=== PATIENT | female | born 1965 | race Caucasian/White ===

== ENCOUNTER → 2017-10-18 10:33 | Outpatient (CLI) | payer MEDICARE, MEDICAID, SELFPAY ==
[2017-10-18 11:49] LABS: Amphetamine Urine VISTA NEGATIVE (<1000 ng/mL); Barbiturate Urine VISTA NEGATIVE (< 200 ng/mL); Benzodiazepine Urine VISTA NEGATIVE (< 200 ng/mL); Cocaine Urine VISTA NEGATIVE (< 300 ng/mL); Ecstacy Urine VISTA POSITIVE (< 500 ng/mL); Methadone Urine VISTA NEGATIVE (< 300 ng/mL); PCP Urine VISTA NEGATIVE (< 25 ng/mL); THC Urine VISTA NEGATIVE (< 50 ng/mL); Vista UDS pH Range 7
== END ==
PROVIDERS: Visit Provider Anesthesiology Pain Medicine
DX: F11.20 Opioid dependence, uncomplicated (principal)
CPT/HCPCS: 80307

== ENCOUNTER 2018-07-05 16:18 | Inpatient (IN) | payer MEDICARE, MEDICAID, SELFPAY ==
[2018-07-05] VITALS (7 sets, daily range): BP systolic 101–145; BP diastolic 54–81; PULSE 49–89; RESP 16–18; TEMP 36.4–37.1; O2SAT 91–96; BMI 42.2
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
[2018-07-05] MEDS: ALPRAZolam 0.5 MG Tablet 1 MG PO (20:07)
[2018-07-05] MEDS: Rizatriptan Benzoate 10 MG Tablet PO (20:28)
[2018-07-05] MEDS: Zolpidem Tartrate 5 MG Tablet PO (21:04)
[2018-07-05] MEDS: Oxybutynin 5 MG Tablet PO (21:05)
[2018-07-05] MEDS: Docusate Sodium 100 MG Capsule PO (21:05)
[2018-07-05] MEDS: Pregabalin 50 MG Capsule PO (21:05)
[2018-07-05] MEDS: RisperiDONE 2 MG Tablet PO (21:06)
[2018-07-05] MEDS: buPROPion (SR) 150 MG Tablet.SA PO (21:06)
[2018-07-05] MEDS: tiZANidine HCl 2 MG Tablet 4 MG PO (21:06)
[2018-07-05 21:16] LABS: Bedside Glucose 192 mg/dL (70-110)
[2018-07-05] MEDS: oxyCODONE 5 MG Tablet PO (23:21)
[2018-07-06] VITALS (36 sets, daily range): BP systolic 100–156; BP diastolic 61–92; PULSE 50–105; RESP 6–18; TEMP 35.8–37.3; O2SAT 92–98
[2018-07-06 06:28] LABS: Absolute Lymphocyte Count 2.29 X10^3/ul (0.83-4.51); Absolute Neutrophil Count 2.9 X10^3/uL (2.0-7.7); Anion Gap 6 (5-15); BUN 20 mg/dL (7-18); BUN/Creat Ratio 19.8 RATIO (10-20); Basophil# 0.03 X10^3/uL; Basophil% 0.5 % (0-1); Calcium,Total 8.8 mg/dL (8.5-10.1); Chloride 98 mmol/L (98-107); Creatinine, Serum 1.01 mg/dL (0.55-1.02); EST Glomerular Filtration Rate 61 mL/min (>60); Eosinophil# 0.13 X10^3/uL; Eosinophils% 2.3 % (0-5); Est Glom Filt Rate - Afr Amer 74 mL/min (>60); Estimated Creatinine Clearance 51.53 ml/min; Glucose 202 mg/dL (74-106); Hematocrit 37.1 % (37-47); Hemoglobin 11.4 g/dl (12.0-15.0); Lymphocyte # 2.29 X10^3/ul (4.0); Lymphocyte % 39.7 % (19-41); Mean Corp Hgb Conc 30.7 g/gl (32-36); Mean Corpuscular Volume 104.2 fL (81-99); Mean Platelet Vol. 9.3 fl (6.2-12.0); Monocyte% 6.9 % (0-10); Neutrophil % 50.3 % (47-70); Platelet Count 298 K/mm3 (150-450); Potassium 4.6 mmol/L (3.5-5.1); RBC Distribution Width CV 13.1 % (11.6-14.6); RBC Distribution Width SD 48.9 fl (35.1-43.9); Red Blood Count 3.56 M/mm3 (4.2-5.4); Sodium Level 136 mmol/L (136-145); White Blood Count 5.8 K/mm3 (4.4-11.0)
[2018-07-06 06:37] LABS: POSITIVE COUNT NO; POSITIVE DIFFERENTIAL NO; POSITIVE MORPHOLOGY NO
[2018-07-06] MEDS: tiZANidine HCl 2 MG Tablet 4 MG PO ×2 (06:41→13:36)
[2018-07-06] MEDS: Levothyroxine 100 MCG Tablet PO (06:41)
[2018-07-06] MEDS: ALPRAZolam 0.5 MG Tablet 1 MG PO (06:47)
[2018-07-06] MEDS: Insulin Lispro 100 UNIT/ML INSULN.PEN SQ ×2 (06:48→17:53)
[2018-07-06 06:50] LABS: Bedside Glucose 174 mg/dL (70-110)
[2018-07-06] MEDS: Oxybutynin 5 MG Tablet PO (07:47)
[2018-07-06] MEDS: Montelukast 10 MG Tablet PO (07:47)
[2018-07-06] MEDS: Loratadine 10 MG Tablet PO (07:47)
[2018-07-06] MEDS: buPROPion (SR) 150 MG Tablet.SA PO (07:47)
[2018-07-06] MEDS: glipiZIDE 5 MG Tablet PO (07:47)
[2018-07-06] MEDS: Pantoprazole Sodium 40 MG Tablet PO (07:47)
[2018-07-06] MEDS: Pregabalin 50 MG Capsule PO (07:50)
--- NOTE | 2018-07-06 09:20 | PCM.PN.HOSP ---
Patient Problems: Active and Suspected Problems (Last Updated 07/05/18 @ 16:45 by Kj Aleman DO) Back pain (Acute) Subjective: No events. Has the intrathecal pump with hydromorphone. Only required percocet last night. Vitals/I&O's: Vital Signs Temp Pulse Resp BP Pulse Ox 36.8 C 68 18 119/68 93 07/06/18 07:30 07/06/18 07:30 07/06/18 07:30 07/06/18 07:30 07/06/18 07:30 Oxygen Flow Rate (L/min) 2 Oxygen Delivery Method Nasal Cannula Weight: 104.689 kg Body Mass Index (BMI) 42.2 Intake and Output for Last 24 Hours 07/04/18 07/05/18 07/06/18 23:59 23:59 23:59 Intake Total 627 / 627 625 / 625 Balance 627 / 627 625 / 625 General: Alert, No apparent distress HEENT: Atraumatic, Normocephalic Oral: Moist Mucosa, No Gingival or Mucosal Lesions/ Ulcerations Neck: No Nodes, Thyroid Normal Size and Texture Lungs: Clear to auscultation, Normal air movement, No rhonchi, No wheeze Cardiovascular: Regular rate, Regular Rhythm, Normal S1, Normal S2, No murmurs Abdomen: Bowel Sounds Present, Soft, Non Tender, Non-Distended, No Hepato-splenomegaly Extremities: No edema, No Calf Tenderness Psych/Mental Status: Normal Affect, Appropriate Laboratory Results 07/05/18 21:02: POC Glucose 192 H 07/06/18 05:30: WBC 5.8, RBC 3.56 L, Hgb 11.4 L, Hct 37.1, MCV 104.2 H, MCH 32.0, MCHC 30.7 L, RDW 13.1, RDW Differential 48.9 H, Plt Count 298, MPV 9.3, Immature Gran % (Auto) 0.300, Neut % (Auto) 50.3, Lymph % (Auto) 39.7, [place] % (Auto) 6.9, Eos % (Auto) 2.3, Baso % (Auto) 0.5, Absolute Neuts (auto) 2.9, Absolute Lymphs (auto) 2.29, Total Counted Not Reportable 07/06/18 05:30: Sodium 136, Potassium 4.6, Chloride 98, Carbon Dioxide 32.0, Anion Gap 6, BUN 20 H, Creatinine 1.01, Estim Creat Clear Calc 51.53, Est GFR (MDRD) Af Amer 74, Est GFR (MDRD) Non-Af 61, BUN/Creatinine Ratio 19.8, Glucose 202 H, Calcium 8.8 07/06/18 06:36: POC Glucose 174 H Current Medications Acetaminophen (Tylenol) 650 mg PO Q6H PRN PRN PRN Reason: Mild Pain (1-3)/Temp > 100.7 F Albuterol Sulfate (Ventolin Aerosols) 2.5 mg INHALATION Q4H PRN PRN Reason: Asthma Albuterol Sulfate (Ventolin Aerosols) 2.5 mg INHALATION Q6HWA.RT [facility] Alprazolam (Xanax) 1 mg PO TID PRN PRN PRN Reason: ANXIETY Last Admin: 07/06/18 06:47 Dose: 1 mg Budesonide (Pulmicort Aerosol) 0.5 mg INHALATION Q12H.RT [facility] Bupropion HCl (Wellbutrin Sr (150mg Tablets)) 150 mg PO BID [facility] Last Admin: 07/06/18 07:47 Dose: 150 mg Dextrose (D50w Syringe) 0 gm IV X1 PRN; Protocol PRN Reason: Hypoglycemia Diphenhydramine HCl (Benadryl) 12.5 - 25 mg IV Q6H PRN PRN PRN Reason: ITCHING Diphenhydramine HCl (Benadryl) 12.5 - 25 mg PO Q6H PRN PRN PRN Reason: ITCHING Docusate Sodium (Colace) 100 mg PO BID PRN PRN PRN Reason: Constipation Last Admin: 07/05/18 21:05 Dose: 100 mg Glipizide (Glucotrol) 5 mg PO DAILY@0800 [facility] Last Admin: 07/06/18 07:47 Dose: 5 mg Glucagon () 1 mg IM .X1 PRN PRN Reason: Hypoglycemia Hydromorphone HCl 50 mg/ (Sodium Chloride 45 ml/ N/A) 50 mls @ 0.1 mls/hr IV .Q48H [facility] Last Admin: 07/05/18 17:59 Dose: 0.1 mls/hr Naloxone HCl 4 mg/ Dextrose 504 mls @ 0 mls/hr IV .Q0M PRN; Protocol PRN Reason: To maintain Resp. rate >10 Insulin Human Lispro (Humalog Kwikpen (Bkc)) 0 unit SQ TIDAC [facility]; Protocol Last Admin: 07/06/18 06:48 Dose: 174 unit Levothyroxine Sodium (Synthroid) 100 mcg PO DAILY@0600 [facility] Last Admin: 07/06/18 06:41 Dose: 100 mcg Loratadine (Claritin) 10 mg PO DAILY [facility] Last Admin: 07/06/18 07:47 Dose: 10 mg Magnesium Hydroxide (Milk Of Magnesia) 30 ml PO DAILY PRN PRN PRN Reason: Constipation Montelukast Sodium (Singulair) 10 mg PO DAILY [facility] Last Admin: 07/06/18 07:47 Dose: 10 mg Naloxone HCl (Narcan) 0.02 mg IV Q1M PRN Ondansetron HCl (Zofran) 4 mg IV Q8H PRN PRN PRN Reason: NAUSEA Oxybutynin Chloride (Ditropan) 5 mg PO BID [facility] Last Admin: 07/06/18 07:47 Dose: 5 mg Oxycodone HCl (Oxyir) 5 - 10 mg PO Q6H PRN PRN PRN Reason: SEVERE PAIN (6-10/10) Last Admin: 07/05/18 23:21 Dose: 10 mg Pantoprazole Sodium (Protonix) 40 mg PO DAILY [facility] Last Admin: 07/06/18 07:47 Dose: 40 mg Pregabalin (Lyrica) 50 mg PO BID [facility] Last Admin: 07/06/18 07:50 Dose: 50 mg Promethazine HCl (Phenergan Tablet) 25 mg PO Q4H PRN PRN PRN Reason: NAUSEA Risperidone (Risperdal) 2 mg PO QHS [facility] Last Admin: 07/05/18 21:06 Dose: 2 mg Rizatriptan Benzoate (Maxalt) 10 mg PO DAILY PRN PRN Reason: HEADACHE Last Admin: 07/05/18 20:28 Dose: 10 mg Tizanidine HCl (Zanaflex) 4 mg PO TID [facility] Last Admin: 07/06/18 06:41 Dose: 4 mg Zolpidem Tartrate (Ambien (Generic)) 5 mg PO QHS [facility] Last Admin: 07/05/18 21:04 Dose: 5 mg Medical Necessity - Tobacco Use Smoking Status: Current every day smoker Tobacco Use: Vapor Assessment/Plan All Active Problems (Last Updated 07/05/18 @ 16:45 by Kj Aleman DO) Back pain (Acute) 1. Back pain Status post temporary intrathecal pump Dr. Ramirez did the procedure and the plan is for him to optimize her pain medication to get her to a threshold to the point where she is controlled and then determine further modes of treatment thereafter. Goal is to get her formal intrathecal pump. Pain management to be facilitated by Dr. Ramirez 2. Diabetes mellitus type 2 Patient states that she is well controlled at home Continue with home medications Moderate dose sliding scale insulin 3. Right sumner rash Looks plaque like but it began after she was wearing a knee brace, so I suspect this is more of a contact dermatitis or an abrasion. I suspect that this will continue to improve Reassurance provided Patient does have a family history of psoriasis but patient is never had a rash like this to began after the knee brace. Therefore I doubt psoriasis. 4. DVT prophylaxis with SCDs. Would hold off on chemical prophylaxis given the recent spinal procedure 5. Disposition: To home when deemed appropriate by pain management. 6. Polypharmacy Reviewed OARRS: She received Percocet, Lyrica and Oxycodone from Dr. Ramirez, Clonazepam and Ambien from Patricia Son. Home med rec had Xanax AND Clonazepam. No record of Xanax prescribed recently on OARRS. Last night, before I reviewed OARRS, I continued Xanax and DC'd clonazepam. I will now resume Clonazepam and DC Xanax, and make it PRN. Recommend follow up with Patricia Son to discuss other option in lieu of long-term benzodiazepines. Code Visit Inpatient E&M: 47006 Subs Hosp L2
--- NOTE | 2018-07-06 09:24 | NURSING ---
Intrathecal dose increased to 0.2mg/hr. Verified with Marguerite Arguelles RN, Dr. Ramirez present in room as well and verified dose settings on pump.
--- NOTE | 2018-07-06 09:28 | PN_ITS ---
Patient Problems: Active and Suspected Problems (Last Updated 07/05/18 @ 16:45 by jK Aleman DO) Back pain (Acute) Subjective: No events. Has the intrathecal pump with hydromorphone. Only required percocet last night. Vitals/I&O's: Vital Signs Temp Pulse Resp BP Pulse Ox 36.8 C 68 18 119/68 93 07/06/18 07:30 07/06/18 07:30 07/06/18 07:30 07/06/18 07:30 07/06/18 07:30 Oxygen Flow Rate (L/min) 2 Oxygen Delivery Method Nasal Cannula Weight: 104.689 kg Body Mass Index (BMI) 42.2 Intake and Output for Last 24 Hours 07/04/18 07/05/18 07/06/18 23:59 23:59 23:59 Intake Total 627 / 627 625 / 625 Balance 627 / 627 625 / 625 General: Alert, No apparent distress HEENT: Atraumatic, Normocephalic Oral: Moist Mucosa, No Gingival or Mucosal Lesions/ Ulcerations Neck: No Nodes, Thyroid Normal Size and Texture Lungs: Clear to auscultation, Normal air movement, No rhonchi, No wheeze Cardiovascular: Regular rate, Regular Rhythm, Normal S1, Normal S2, No murmurs Abdomen: Bowel Sounds Present, Soft, Non Tender, Non-Distended, No Hepato- splenomegaly Extremities: No edema, No Calf Tenderness Psych/Mental Status: Normal Affect, Appropriate Laboratory Results 07/05/18 21:02: POC Glucose 192 H 07/06/18 05:30: WBC 5.8, RBC 3.56 L, Hgb 11.4 L, Hct 37.1, MCV 104.2 H, MCH 32.0, MCHC 30.7 L, RDW 13.1, RDW Differential 48.9 H, Plt Count 298, MPV 9.3, Immature Gran % (Auto) 0.300, Neut % (Auto) 50.3, Lymph % (Auto) 39.7, [place] % (Auto) 6.9, Eos % (Auto) 2.3, Baso % (Auto) 0.5, Absolute Neuts (auto) 2.9, Absolute Lymphs (auto) 2.29, Total Counted Not Reportable 07/06/18 05:30: Sodium 136, Potassium 4.6, Chloride 98, Carbon Dioxide 32.0, Anion Gap 6, BUN 20 H, Creatinine 1.01, Estim Creat Clear Calc 51.53, Est GFR (MDRD) Af Amer 74, Est GFR (MDRD) Non-Af 61, BUN/Creatinine Ratio 19.8, Glucose 202 H, Calcium 8.8 07/06/18 06:36: POC Glucose 174 H Current Medications Acetaminophen (Tylenol) 650 mg PO Q6H PRN PRN PRN Reason: Mild Pain (1-3)/Temp > 100.7 F Albuterol Sulfate (Ventolin Aerosols) 2.5 mg INHALATION Q4H PRN PRN Reason: Asthma Albuterol Sulfate (Ventolin Aerosols) 2.5 mg INHALATION Q6HWA.RT [facility] Alprazolam (Xanax) 1 mg PO TID PRN PRN PRN Reason: ANXIETY Last Admin: 07/06/18 06:47 Dose: 1 mg Budesonide (Pulmicort Aerosol) 0.5 mg INHALATION Q12H.RT [facility] Bupropion HCl (Wellbutrin Sr (150mg Tablets)) 150 mg PO BID [facility] Last Admin: 07/06/18 07:47 Dose: 150 mg Dextrose (D50w Syringe) 0 gm IV X1 PRN; Protocol PRN Reason: Hypoglycemia Diphenhydramine HCl (Benadryl) 12.5 - 25 mg IV Q6H PRN PRN PRN Reason: ITCHING Diphenhydramine HCl (Benadryl) 12.5 - 25 mg PO Q6H PRN PRN PRN Reason: ITCHING Docusate Sodium (Colace) 100 mg PO BID PRN PRN PRN Reason: Constipation Last Admin: 07/05/18 21:05 Dose: 100 mg Glipizide (Glucotrol) 5 mg PO DAILY@0800 [facility] Last Admin: 07/06/18 07:47 Dose: 5 mg Glucagon () 1 mg IM .X1 PRN PRN Reason: Hypoglycemia Hydromorphone HCl 50 mg/ (Sodium Chloride 45 ml/ N/A) 50 mls @ 0.1 mls/hr IV .Q48H [facility] Last Admin: 07/05/18 17:59 Dose: 0.1 mls/hr Naloxone HCl 4 mg/ Dextrose 504 mls @ 0 mls/hr IV .Q0M PRN; Protocol PRN Reason: To maintain Resp. rate >10 Insulin Human Lispro (Humalog Kwikpen (Bkc)) 0 unit SQ TIDAC [facility]; Protocol Last Admin: 07/06/18 06:48 Dose: 174 unit Levothyroxine Sodium (Synthroid) 100 mcg PO DAILY@0600 [facility] Last Admin: 07/06/18 06:41 Dose: 100 mcg Loratadine (Claritin) 10 mg PO DAILY [facility] Last Admin: 07/06/18 07:47 Dose: 10 mg Magnesium Hydroxide (Milk Of Magnesia) 30 ml PO DAILY PRN PRN PRN Reason: Constipation Montelukast Sodium (Singulair) 10 mg PO DAILY [facility] Last Admin: 07/06/18 07:47 Dose: 10 mg Naloxone HCl (Narcan) 0.02 mg IV Q1M PRN Ondansetron HCl (Zofran) 4 mg IV Q8H PRN PRN PRN Reason: NAUSEA Oxybutynin Chloride (Ditropan) 5 mg PO BID [facility] Last Admin: 07/06/18 07:47 Dose: 5 mg Oxycodone HCl (Oxyir) 5 - 10 mg PO Q6H PRN PRN PRN Reason: SEVERE PAIN (6-10/10) Last Admin: 07/05/18 23:21 Dose: 10 mg Pantoprazole Sodium (Protonix) 40 mg PO DAILY [facility] Last Admin: 07/06/18 07:47 Dose: 40 mg Pregabalin (Lyrica) 50 mg PO BID [facility] Last Admin: 07/06/18 07:50 Dose: 50 mg Promethazine HCl (Phenergan Tablet) 25 mg PO Q4H PRN PRN PRN Reason: NAUSEA Risperidone (Risperdal) 2 mg PO QHS [facility] Last Admin: 07/05/18 21:06 Dose: 2 mg Rizatriptan Benzoate (Maxalt) 10 mg PO DAILY PRN PRN Reason: HEADACHE Last Admin: 07/05/18 20:28 Dose: 10 mg Tizanidine HCl (Zanaflex) 4 mg PO TID [facility] Last Admin: 07/06/18 06:41 Dose: 4 mg Zolpidem Tartrate (Ambien (Generic)) 5 mg PO QHS [facility] Last Admin: 07/05/18 21:04 Dose: 5 mg Medical Necessity - Tobacco Use Smoking Status: Current every day smoker Tobacco Use: Vapor Assessment/Plan All Active Problems (Last Updated 07/05/18 @ 16:45 by Kj Aleman DO) Back pain (Acute) 1. Back pain Status post temporary intrathecal pump Dr. Ramirez did the procedure and the plan is for him to optimize her pain medication to get her to a threshold to the point where she is controlled and then determine further modes of treatment thereafter. Goal is to get her formal intrathecal pump. Pain management to be facilitated by Dr. Ramirez 2. Diabetes mellitus type 2 Patient states that she is well controlled at home Continue with home medications Moderate dose sliding scale insulin 3. Right sumner rash Looks plaque like but it began after she was wearing a knee brace, so I suspect this is more of a contact dermatitis or an abrasion. I suspect that this will continue to improve Reassurance provided Patient does have a family history of psoriasis but patient is never had a rash like this to began after the knee brace. Therefore I doubt psoriasis. 4. DVT prophylaxis with SCDs. Would hold off on chemical prophylaxis given the recent spinal procedure 5. Disposition: To home when deemed appropriate by pain management. 6. Polypharmacy Reviewed OARRS: She received Percocet, Lyrica and Oxycodone from Dr. Ramirez, Clonazepam and Ambien from Patricia Son. Home med rec had Xanax AND Clonazepam. No record of Xanax prescribed recently on OARRS. Last night, before I reviewed OARRS, I continued Xanax and DC'd clonazepam. I will now resume Clonazepam and DC Xanax, and make it PRN. Recommend follow up with Patricia Son to discuss other option in lieu of long-term benzodiazepines. Code Visit Inpatient E&M: 30154 Subs Hosp L2
--- NOTE | 2018-07-06 11:00 | CASEMGMT ---
RN JOHNNIE Face to Face with patient for initial transition planning/care coordination assessment. RN CM introduced self and role at [facility]. Patient lying in bed, alert and oriented. Patient willing to participate in assessment and is able to answer all questions appropriately. Care providers, pharmacy, and demographics verified. Patient wishes to discharge home, denies need for home health at this time. Patient states she has no further needs or concerns at this time. CM to follow for discharge planning needs that may arise. PCP: Etta velasco [place] Specialists: Ashley Onofre Pharmacy: [facility] Insurance: [facility], [employer] Prescription Benefit: Yes Living Will/HPOA: None LNOK: Father Living Arrangements: Lives with 11 yo grandson in an apt, independent at home. Transportation: Self/friend DME/HHC: Patient has cane and walker. Disposition Plan: Patient to discharge home with family support and follow-up plans in place. Alessia LUQUE, RN, CM
[2018-07-06 11:36] LABS: Bedside Glucose 114 mg/dL (70-110)
[2018-07-06] MEDS: Rizatriptan Benzoate 10 MG Tablet PO (12:02)
[2018-07-06] MEDS: proMETHazine 25 MG Tablet PO (12:06)
[2018-07-06] MEDS: clonazePAM 1 MG Tablet PO (12:06)
[2018-07-06] MEDS: Albuterol 2.5 MG/3 ML VIAL.NEB. INHALATION ×2 (14:08→19:27)
[2018-07-06] MEDS: Budesonide Respules 0.5 MG/2 ML AMPUL.NEB. INHALATION (14:08)
--- NOTE | 2018-07-06 14:32 | CPS ---
Patient sleeping. Respirations at 6. Pulse oximeter ranging from 84-95%. Increased to 4lpm. Expressed concern to RN. Patient awoke momentarily, she said she has JAGUAR but does not have a CPAP.
[2018-07-06 16:06] LABS: Bedside Glucose 214 mg/dL (70-110)
--- NOTE | 2018-07-06 16:06 | NURSING ---
Pt lethargic/drowsy/falling asleep mid conversation. Respiratory rate 6-8 per minute and oxygen saturation 95% on 4L NC. Dr. Ramirez paged. Intrathecal infusion stopped at 1435. After 1.5 hours pt status still the same. Pt will wake up to name easily. Dr. Ramirez paged again for opinion on giving Narcan. He recommends monitoring pt closely and not giving Narcan unless pt status gets worse. He will be in to assess Pt around 1730. Pt and boyfriend updated.
--- NOTE | 2018-07-06 17:56 | NURSING ---
Dr. Ramirez in to see pt around 1745. Boyfriend at bedside. Pt able to hold conversation with Dr. Ramirez but speech still slurred and pupils pinpoint. Dr. Ramirez pulled out intrathecal catheter with tip intact and will have us monitor pt overnight and discharge her in the am. No pain medication to be given.
--- NOTE | 2018-07-06 20:08 | NURSING ---
Called Dr Hanson after assessing pt and in discussion with charge nurse and respiratory staff. See charted assess and POSS. Dr Hanson ordered blood gases and 0.4mg of narcan to bet given.
[2018-07-06] MEDS: Naloxone 0.4 MG/ML Syringe IV ×2 (20:14→21:31)
[2018-07-06] MEDS: Acetaminophen 325 MG Tablet 650 MG PO (20:49)
[2018-07-06] MEDS: Ondansetron 4 MG/2 ML Vial IV (20:49)
--- NOTE | 2018-07-06 21:00 | NURSING ---
narcan effective. VS taken post administration. pt vomitted and incont stool post administration. c/o headache post administration. zofran and tylenol given. pupils returned to normal initially. pt ambulated back to bathroom. on return to bed pupils reduced from 4+ to 2+ and pt beginning to get drowsy again. will monitor closely.
[2018-07-06 21:30] LABS: Bedside Glucose 149 mg/dL (70-110)
--- NOTE | 2018-07-06 21:33 | CCHN_ITS ---
Hospitalist Note Patient is having hypopnea with shallow respiratory effort, respiratory rate 6- 8/min. About 8:00 p.m., nurse called to evaluate for decreased respiratory effort and and sleepiness. Patient was seen and examined. Decreased responsiveness, shallow respiratory effort. Narcan 0.4 mg given. Patient woke up but after about 1 hour, she is still sleepy with decreased respiratory effort. Patient is being transferred to ICU for Narcan IV stat and then start infusion. Incentive spirometry. ABG was ordered.
--- NOTE | 2018-07-06 21:50 | NURSING ---
further assessment of pt attended. RR8 and POSS 3. After discussion with Hospitalist, further dose of narcan given and arrangements made to transfer pt to ICU for further monitoring. Pt vomitted again post administration of narcan. Handoff given to ORDER TRACER Gretchen. Will notify Dr Ramirez and family.
--- NOTE | 2018-07-06 22:49 | CPS ---
ABG unsuccessful attempt x2 prior to first dose of narcan. Post narcan attempt X2 by Dr. Hanson. Pt refused additional attempts. Pt placed on etCO2 monitor due to continued abnormal RR.
[2018-07-06] MEDS: 0.9% NaCl Peripheral Flush Adult/Peds IV (23:43)
[2018-07-07] VITALS (27 sets, daily range): BP systolic 113–157; BP diastolic 59–94; PULSE 75–103; RESP 11–22; TEMP 36.2–36.5; O2SAT 90–100
[2018-07-07] MEDS: 0.9% Normal Saline 1,000 ML 75 ML IV (00:07)
[2018-07-07] MEDS: proMETHazine 25 MG Tablet PO (00:15)
[2018-07-07] MEDS: Acetaminophen 325 MG Tablet 650 MG PO ×2 (03:05→09:11)
[2018-07-07] MEDS: Levothyroxine 100 MCG Tablet PO (05:02)
[2018-07-07] MEDS: Budesonide Respules 0.5 MG/2 ML AMPUL.NEB. INHALATION (07:21)
[2018-07-07] MEDS: Albuterol 2.5 MG/3 ML VIAL.NEB. INHALATION (07:21)
--- NOTE | 2018-07-07 08:04 | PCM.PN.HOSP ---
Patient Problems: Active and Suspected Problems (Last Updated 07/05/18 @ 16:45 by Kj Aleman DO) Back pain (Acute) Narcotic overdose (Acute) Subjective: Events reviewed. Patient had sonorous respirations and had a respiratory rate of around 6. Concern was for overdose and patient received Narcan barely woke and then was put on Narcan drip. Since then patient has been awake and alert. Patient denies any respiratory distress at this time. The intrathecal hydromorphone has been discontinued. Vitals/I&O's: Vital Signs Temp Pulse Resp BP Pulse Ox 36.4 C L 93 13 126/70 H 94 07/07/18 06:00 07/07/18 06:00 07/07/18 06:00 07/07/18 06:00 07/07/18 06:00 Oxygen Flow Rate (L/min) 2 Oxygen Delivery Method Nasal Cannula Weight: 106.1 kg Body Mass Index (BMI) 42.2 Intake and Output for Last 24 Hours 07/05/18 07/06/18 07/07/18 23:59 23:59 23:59 Intake Total 627 / 627 1385 / 1385 588 / 588 Output Total 1400 / 1400 375 / 375 Balance 627 / 627 -15 / -15 213 / 213 General: Alert, No apparent distress HEENT: Atraumatic, Normocephalic Oral: Moist Mucosa, No Gingival or Mucosal Lesions/ Ulcerations Neck: No Nodes, Thyroid Normal Size and Texture Lungs: Clear to auscultation, Normal air movement, No rhonchi, No wheeze Cardiovascular: Regular rate, Regular Rhythm, Normal S1, Normal S2, No murmurs Abdomen: Bowel Sounds Present, Soft, Non Tender, Non-Distended, No Hepato-splenomegaly Extremities: No edema, No Calf Tenderness Skin: No rashes, No breakdown Musculoskeletal: No Tenderness to Palpation of Joints or Extremities, No Muscle Wasting Psych/Mental Status: Normal Affect, Appropriate Laboratory Results 07/06/18 10:51: POC Glucose 114 H 07/06/18 15:57: POC Glucose 214 H 07/06/18 21:21: POC Glucose 149 H Current Medications Acetaminophen (Tylenol) 650 mg PO Q6H PRN PRN PRN Reason: Mild Pain (1-3)/Temp > 100.7 F Last Admin: 07/07/18 03:05 Dose: 650 mg Albuterol Sulfate (Ventolin Aerosols) 2.5 mg INHALATION Q4H PRN PRN Reason: Asthma Albuterol Sulfate (Ventolin Aerosols) 2.5 mg INHALATION Q6HWA.RT [facility] Last Admin: 07/07/18 07:21 Dose: 2.5 mg Budesonide (Pulmicort Aerosol) 0.5 mg INHALATION Q12H.RT [facility] Last Admin: 07/07/18 07:21 Dose: 0.5 mg Bupropion HCl (Wellbutrin Sr (150mg Tablets)) 150 mg PO BID [facility] Last Admin: 07/06/18 21:30 Dose: Not Given Clonazepam (Klonopin) 1 mg PO TID PRN PRN Reason: ANXIETY Last Admin: 07/06/18 12:06 Dose: 1 mg Dextrose (D50w Syringe) 0 gm IV X1 PRN; Protocol PRN Reason: Hypoglycemia Diphenhydramine HCl (Benadryl) 12.5 - 25 mg IV Q6H PRN PRN PRN Reason: ITCHING Diphenhydramine HCl (Benadryl) 12.5 - 25 mg PO Q6H PRN PRN PRN Reason: ITCHING Docusate Sodium (Colace) 100 mg PO BID PRN PRN PRN Reason: Constipation Last Admin: 07/05/18 21:05 Dose: 100 mg Glipizide (Glucotrol) 5 mg PO DAILY@0800 [facility] Last Admin: 07/06/18 07:47 Dose: 5 mg Glucagon () 1 mg IM .X1 PRN PRN Reason: Hypoglycemia Sodium Chloride () 1,000 mls @ 75 mls/hr IV .[id number] [facility] Last Admin: 07/07/18 00:07 Dose: 75 mls/hr Naloxone HCl 4 mg/ Dextrose 504 mls @ 0 mls/hr IV .Q0M PRN; Protocol PRN Reason: To maintain Resp. rate >10 Insulin Human Lispro (Humalog Kwikpen (Bkc)) 0 unit SQ TIDAC [facility]; Protocol Last Admin: 07/06/18 17:53 Dose: 2 unit Levothyroxine Sodium (Synthroid) 100 mcg PO DAILY@0600 [facility] Last Admin: 07/07/18 05:02 Dose: 100 mcg Loratadine (Claritin) 10 mg PO DAILY [facility] Last Admin: 07/06/18 07:47 Dose: 10 mg Magnesium Hydroxide (Milk Of Magnesia) 30 ml PO DAILY PRN PRN PRN Reason: Constipation Montelukast Sodium (Singulair) 10 mg PO DAILY [facility] Last Admin: 07/06/18 07:47 Dose: 10 mg Naloxone HCl (Narcan) 0.02 mg IV Q1M PRN Ondansetron HCl (Zofran) 4 mg IV Q8H PRN PRN PRN Reason: NAUSEA Last Admin: 07/06/18 20:49 Dose: 4 mg Oxybutynin Chloride (Ditropan) 5 mg PO BID [facility] Last Admin: 07/06/18 21:30 Dose: Not Given Oxycodone HCl (Oxyir) 5 - 10 mg PO Q6H PRN PRN PRN Reason: SEVERE PAIN (6-10/10) Last Admin: 07/05/18 23:21 Dose: 10 mg Pantoprazole Sodium (Protonix) 40 mg PO DAILY [facility] Last Admin: 07/06/18 07:47 Dose: 40 mg Pregabalin (Lyrica) 50 mg PO BID [facility] Last Admin: 07/06/18 21:30 Dose: Not Given Promethazine HCl (Phenergan Tablet) 25 mg PO Q4H PRN PRN PRN Reason: NAUSEA Last Admin: 07/07/18 00:15 Dose: 25 mg Risperidone (Risperdal) 2 mg PO QHS [facility] Last Admin: 07/06/18 21:30 Dose: Not Given Rizatriptan Benzoate (Maxalt) 10 mg PO DAILY PRN PRN Reason: HEADACHE Last Admin: 07/06/18 12:02 Dose: 10 mg Sodium Chloride () 5 - 15 ml IV UD PRN PRN Reason: SALINE FLUSH Last Admin: 07/06/18 23:43 Dose: 10 ml Tizanidine HCl (Zanaflex) 4 mg PO TID [facility] Last Admin: 07/07/18 05:03 Dose: Not Given Zolpidem Tartrate (Ambien (Generic)) 5 mg PO QHS [facility] Last Admin: 07/06/18 21:25 Dose: Not Given Medical Necessity - Tobacco Use Smoking Status: Current every day smoker Tobacco Use: Vapor Assessment/Plan All Active Problems (Last Updated 07/05/18 @ 16:45 by Kj Aleman DO) Back pain (Acute) Narcotic overdose (Acute) 1. Narcotic Overdose 2/2 intrathecal hydromorphone s/p Narcan IV x1 on 07/06 at 2004. Narcan gtt started at 1740 and discontinued this AM. Will monitor this AM to see if Narcan gtt needs restarted or not. 2. Back pain Status post temporary intrathecal pump. Removed (possibly last night). Intrathecal pump discontinued given the overdose. 3. Diabetes mellitus type 2 Patient states that she is well controlled at home Continue with home medications Moderate dose sliding scale insulin 4. Right sumner rash Looks plaque like but it began after she was wearing a knee brace, so I suspect this is more of a contact dermatitis or an abrasion. I suspect that this will continue to improve Reassurance provided Patient does have a family history of psoriasis but patient is never had a rash like this to began after the knee brace. Therefore I doubt psoriasis. 5. DVT prophylaxis with SCDs. Would hold off on chemical prophylaxis given the recent spinal procedure 6. Disposition: To home when deemed appropriate by pain management. 7. Polypharmacy Reviewed [facility]AR[facility]: She received Percocet, Lyrica and Oxycodone from Dr. Ramirez, Clonazepam and Ambien from Patricia Son. Home med rec had Xanax AND Clonazepam. No record of Xanax prescribed recently on [facility]. Last night, before I reviewed [facility], I continued Xanax and DC'd clonazepam. I will now resume Clonazepam and DC Xanax, and make it PRN. Recommend follow up with Patricia Son to discuss other option in lieu of long-term benzodiazepines. Page out to Dr. Ramirez. Code Visit Inpatient E&M: 69554 Subs Hosp L3
--- NOTE | 2018-07-07 08:17 | PN_ITS ---
Patient Problems: Active and Suspected Problems (Last Updated 07/05/18 @ 16:45 by Kj Aleman DO) Back pain (Acute) Narcotic overdose (Acute) Subjective: Events reviewed. Patient had sonorous respirations and had a respiratory rate of around 6. Concern was for overdose and patient received Narcan barely woke and then was put on Narcan drip. Since then patient has been awake and alert. Patient denies any respiratory distress at this time. The intrathecal hydromorphone has been discontinued. Vitals/I&O's: Vital Signs Temp Pulse Resp BP Pulse Ox 36.4 C L 93 13 126/70 H 94 07/07/18 06:00 07/07/18 06:00 07/07/18 06:00 07/07/18 06:00 07/07/18 06:00 Oxygen Flow Rate (L/min) 2 Oxygen Delivery Method Nasal Cannula Weight: 106.1 kg Body Mass Index (BMI) 42.2 Intake and Output for Last 24 Hours 07/05/18 07/06/18 07/07/18 23:59 23:59 23:59 Intake Total 627 / 627 1385 / 1385 588 / 588 Output Total 1400 / 1400 375 / 375 Balance 627 / 627 -15 / -15 213 / 213 General: Alert, No apparent distress HEENT: Atraumatic, Normocephalic Oral: Moist Mucosa, No Gingival or Mucosal Lesions/ Ulcerations Neck: No Nodes, Thyroid Normal Size and Texture Lungs: Clear to auscultation, Normal air movement, No rhonchi, No wheeze Cardiovascular: Regular rate, Regular Rhythm, Normal S1, Normal S2, No murmurs Abdomen: Bowel Sounds Present, Soft, Non Tender, Non-Distended, No Hepato- splenomegaly Extremities: No edema, No Calf Tenderness Skin: No rashes, No breakdown Musculoskeletal: No Tenderness to Palpation of Joints or Extremities, No Muscle Wasting Psych/Mental Status: Normal Affect, Appropriate Laboratory Results 07/06/18 10:51: POC Glucose 114 H 07/06/18 15:57: POC Glucose 214 H 07/06/18 21:21: POC Glucose 149 H Current Medications Acetaminophen (Tylenol) 650 mg PO Q6H PRN PRN PRN Reason: Mild Pain (1-3)/Temp > 100.7 F Last Admin: 07/07/18 03:05 Dose: 650 mg Albuterol Sulfate (Ventolin Aerosols) 2.5 mg INHALATION Q4H PRN PRN Reason: Asthma Albuterol Sulfate (Ventolin Aerosols) 2.5 mg INHALATION Q6HWA.RT [facility] Last Admin: 07/07/18 07:21 Dose: 2.5 mg Budesonide (Pulmicort Aerosol) 0.5 mg INHALATION Q12H.RT [facility] Last Admin: 07/07/18 07:21 Dose: 0.5 mg Bupropion HCl (Wellbutrin Sr (150mg Tablets)) 150 mg PO BID [facility] Last Admin: 07/06/18 21:30 Dose: Not Given Clonazepam (Klonopin) 1 mg PO TID PRN PRN Reason: ANXIETY Last Admin: 07/06/18 12:06 Dose: 1 mg Dextrose (D50w Syringe) 0 gm IV X1 PRN; Protocol PRN Reason: Hypoglycemia Diphenhydramine HCl (Benadryl) 12.5 - 25 mg IV Q6H PRN PRN PRN Reason: ITCHING Diphenhydramine HCl (Benadryl) 12.5 - 25 mg PO Q6H PRN PRN PRN Reason: ITCHING Docusate Sodium (Colace) 100 mg PO BID PRN PRN PRN Reason: Constipation Last Admin: 07/05/18 21:05 Dose: 100 mg Glipizide (Glucotrol) 5 mg PO DAILY@0800 [facility] Last Admin: 07/06/18 07:47 Dose: 5 mg Glucagon () 1 mg IM .X1 PRN PRN Reason: Hypoglycemia Sodium Chloride () 1,000 mls @ 75 mls/hr IV .[id number] [facility] Last Admin: 07/07/18 00:07 Dose: 75 mls/hr Naloxone HCl 4 mg/ Dextrose 504 mls @ 0 mls/hr IV .Q0M PRN; Protocol PRN Reason: To maintain Resp. rate >10 Insulin Human Lispro (Humalog Kwikpen (Bkc)) 0 unit SQ TIDAC [facility]; Protocol Last Admin: 07/06/18 17:53 Dose: 2 unit Levothyroxine Sodium (Synthroid) 100 mcg PO DAILY@0600 [facility] Last Admin: 07/07/18 05:02 Dose: 100 mcg Loratadine (Claritin) 10 mg PO DAILY [facility] Last Admin: 07/06/18 07:47 Dose: 10 mg Magnesium Hydroxide (Milk Of Magnesia) 30 ml PO DAILY PRN PRN PRN Reason: Constipation Montelukast Sodium (Singulair) 10 mg PO DAILY [facility] Last Admin: 07/06/18 07:47 Dose: 10 mg Naloxone HCl (Narcan) 0.02 mg IV Q1M PRN Ondansetron HCl (Zofran) 4 mg IV Q8H PRN PRN PRN Reason: NAUSEA Last Admin: 07/06/18 20:49 Dose: 4 mg Oxybutynin Chloride (Ditropan) 5 mg PO BID [facility] Last Admin: 07/06/18 21:30 Dose: Not Given Oxycodone HCl (Oxyir) 5 - 10 mg PO Q6H PRN PRN PRN Reason: SEVERE PAIN (6-10/10) Last Admin: 07/05/18 23:21 Dose: 10 mg Pantoprazole Sodium (Protonix) 40 mg PO DAILY [facility] Last Admin: 07/06/18 07:47 Dose: 40 mg Pregabalin (Lyrica) 50 mg PO BID [facility] Last Admin: 07/06/18 21:30 Dose: Not Given Promethazine HCl (Phenergan Tablet) 25 mg PO Q4H PRN PRN PRN Reason: NAUSEA Last Admin: 07/07/18 00:15 Dose: 25 mg Risperidone (Risperdal) 2 mg PO QHS [facility] Last Admin: 07/06/18 21:30 Dose: Not Given Rizatriptan Benzoate (Maxalt) 10 mg PO DAILY PRN PRN Reason: HEADACHE Last Admin: 07/06/18 12:02 Dose: 10 mg Sodium Chloride () 5 - 15 ml IV UD PRN PRN Reason: SALINE FLUSH Last Admin: 07/06/18 23:43 Dose: 10 ml Tizanidine HCl (Zanaflex) 4 mg PO TID [facility] Last Admin: 07/07/18 05:03 Dose: Not Given Zolpidem Tartrate (Ambien (Generic)) 5 mg PO QHS [facility] Last Admin: 07/06/18 21:25 Dose: Not Given Medical Necessity - Tobacco Use Smoking Status: Current every day smoker Tobacco Use: Vapor Assessment/Plan All Active Problems (Last Updated 07/05/18 @ 16:45 by Kj Alemna DO) Back pain (Acute) Narcotic overdose (Acute) 1. Narcotic Overdose 2/2 intrathecal hydromorphone s/p Narcan IV x1 on 07/06 at 2004. Narcan gtt started at 1740 and discontinued this AM. Will monitor this AM to see if Narcan gtt needs restarted or not. 2. Back pain Status post temporary intrathecal pump. Removed (possibly last night). Intrathecal pump discontinued given the overdose. 3. Diabetes mellitus type 2 Patient states that she is well controlled at home Continue with home medications Moderate dose sliding scale insulin 4. Right sumner rash Looks plaque like but it began after she was wearing a knee brace, so I suspect this is more of a contact dermatitis or an abrasion. I suspect that this will continue to improve Reassurance provided Patient does have a family history of psoriasis but patient is never had a rash like this to began after the knee brace. Therefore I doubt psoriasis. 5. DVT prophylaxis with SCDs. Would hold off on chemical prophylaxis given the recent spinal procedure 6. Disposition: To home when deemed appropriate by pain management. 7. Polypharmacy Reviewed OARRS: She received Percocet, Lyrica and Oxycodone from Dr. Ramirez, Clonazepam and Ambien from Patricia Son. Home med rec had Xanax AND Clonazepam. No record of Xanax prescribed recently on O[facility]RS. Last night, before I reviewed OARRS, I continued Xanax and DC'd clonazepam. I will now resume Clonazepam and DC Xanax, and make it PRN. Recommend follow up with Patricia Son to discuss other option in lieu of long-term benzodiazepines. Page out to Dr. Ramirez. Code Visit Inpatient E&M: 93406 Subs Hosp L3
[2018-07-07 08:41] LABS: Bedside Glucose 149 mg/dL (70-110)
[2018-07-07] MEDS: buPROPion (SR) 150 MG Tablet.SA PO (09:12)
[2018-07-07] MEDS: Loratadine 10 MG Tablet PO (09:12)
[2018-07-07] MEDS: glipiZIDE 5 MG Tablet PO (09:12)
[2018-07-07] MEDS: Pantoprazole Sodium 40 MG Tablet PO (09:12)
[2018-07-07] MEDS: Montelukast 10 MG Tablet PO (09:12)
[2018-07-07] MEDS: Oxybutynin 5 MG Tablet PO (09:13)
[2018-07-07] MEDS: Pregabalin 50 MG Capsule PO (09:15)
[2018-07-07] MEDS: oxyCODONE 5 MG Tablet PO (11:15)
[2018-07-07] MEDS: Ondansetron 4 MG/2 ML Vial IV (11:15)
[2018-07-07] MEDS: Rizatriptan Benzoate 10 MG Tablet PO (12:15)
[2018-07-07] MEDS: Insulin Lispro 100 UNIT/ML INSULN.PEN SQ (12:17)
[2018-07-07 12:25] LABS: Bedside Glucose 153 mg/dL (70-110)
[2018-07-07] MEDS: clonazePAM 1 MG Tablet PO (12:30)
--- NOTE | 2018-07-07 13:21 | DCINST_ITS ---
- Discharge Diagnoses Current Active Problems: Current Active and Chronic Problems (Last Updated 07/05/18 @ 16:45 by Kj Aleman DO) Narcotic overdose (Acute) Back pain (Acute) You will use the following diet at home:: Calorie/Carbohydrate Controlled (specify 1200, 1400, etc) - 1800 calories/day Your food should be the consistency of: Regular Your liquids should be the consistency of: Regular/Thin Discharge Activity: Return to Normal Activity Call your doctor if you observe: Fever of 101 or Higher, Shortness of breath Allergies/Adverse Reactions: Allergies amoxicillin [Amoxicillin] Allergy (Verified 12/18/13 14:57) Unknown ampicillin Allergy (Verified 01/18/14 11:25) Unknown banana [Banana] Allergy (Verified 01/18/14 11:25) Anaphylaxis Penicillins Allergy (Verified 01/18/14 11:25) Unknown propoxyphene napsylate [From Darvocet-N] Allergy (Verified 01/18/14 11:26) Nausea tramadol Allergy (Verified 12/18/13 14:57) Unknown Medications to take at Discharge Albuterol Inhaler [Ventolin Hfa] 1 - 2 puff INHALATION Q6H PRN PRN 01/10/14 Levothyroxine [Synthroid] 100 mcg PO DAILY 01/10/14 Oxycodone HCl/Acetaminophen [Percocet 5-325] 7.5 mg PO BID 01/10/14 Pregabalin [Lyrica] 50 mg PO BID 01/10/14 Budesonide/Formoterol 80-4.5 [Symbicort 80-4.5 Mcg Inhaler] 2 puff INHALATION BID 01/18/14 Docusate Sodium [Colace] 100 mg PO BID PRN PRN #10 capsule 01/18/14 proMETHazine tablet [Phenergan tablet] 25 mg PO Q4H PRN PRN #10 tablet 01/18/14 Bupropion HCl [Bupropion HCl Sr] 150 mg PO BID 07/05/18 Clonazepam 1 mg PO TID 07/05/18 Glipizide 5 mg PO DAILY 07/05/18 Loratadine 10 mg PO DAILY 07/05/18 Melatonin 10 mg PO QHS 07/05/18 Montelukast Sodium 10 mg PO DAILY 07/05/18 Oxybutynin [Ditropan] 5 mg PO BID 07/05/18 Oxycodone Myristate [Xtampza ER] 36 mg PO BID 07/05/18 Pantoprazole Sodium 40 mg PO DAILY 07/05/18 Risperidone 2 mg PO QHS 07/05/18 Sumatriptan Succinate 100 mg PO DAILY PRN PRN 07/05/18 Tizanidine HCl 4 mg PO TID 07/05/18 Zolpidem Tartrate 10 mg PO QHS 07/05/18 Primary Care Physician: [facility] Doctor,Out of [Primary Care Provider] - Test Results: Test results from this visit will be discussed in further detail at your follow- up appointment, if applicable. Please Follow Up With: lashell curry When: 2 weeks Please Follow Up With: Columba Ramirez MD When: 1-2 weeks Proposed Discharge Date: 07/07/18
--- NOTE | 2018-07-07 13:27 | DS.PCM_ITS ---
Discharge Date and Diagnosis - Problem List Patient Problems: Active and Suspected Problems (Last Updated 07/05/18 @ 16:45 by Kj Aleman DO) Narcotic overdose (Acute) Back pain (Acute) Date of Admission: 07/05/18 Date of Discharge: 07/07/18 - Primary Discharge Diagnosis Active and Suspected Problems (Last Updated 07/05/18 @ 16:45 by Kj Aleman DO) Narcotic overdose (Acute) Back pain (Acute) Hospital Course and Treatment MD Ashley: Pain management. Operations: None Procedures: None Summary of Care Provided: The patient is a 52 year old F was admitted after having a temporary spinal infusion device place for titrating medications for an eventual intrathecal pump. Pain medication was facilitated by Dr. Ramirez and she was placed on hydromorphone. Patient was doing well, until the evening of the , where she had a low respiratory rate, limited lung exertion, and decreased mental status--drug overdose due to the hydromorphone. She was seen by Dr. Ramirez at that time, and the intrathecal hydromorphone was stopped (device removed along with it). She was started on a Narcan gtt and received a bolus. Today, the Narcan drip was discontinued and she was monitored. Her subsequent course was uncomplicated except a headache. She did received Maxalt for her Migraine which reduced the intensity from an 8/10 to 3/10. She has had no further respiratory issues. I discussed with Dr. Ramirez and she will follow up with him as outpt.[] Patient Problems: Active and Suspected Problems (Last Updated 07/05/18 @ 16:45 by Kj Aleman DO) Narcotic overdose (Acute) Back pain (Acute) - Physical Exam Vital Signs Temp Pulse Resp BP Pulse Ox 36.3 C L 85 11 L 157/91 H 100 07/07/18 12:00 07/07/18 13:00 07/07/18 13:00 07/07/18 13:00 07/07/18 13:00 Oxygen Flow Rate (L/min) 1 Oxygen Delivery Method Room Air Weight: 106.1 kg Body Mass Index (BMI) 42.2 Intake and Output for Last 24 Hours 07/05/18 07/06/18 07/07/18 23:59 23:59 23:59 Intake Total 627 / 627 1385 / 1385 1188 / 1188 Output Total 1400 / 1400 1475 / 1475 Balance 627 / 627 -15 / -15 -287 / -287 POC Glucose 07/07/18 07/07/18 07/06/18 12:16 08:33 21:21 POC Glucose 153 H 149 H 149 H 07/06/18 15:57 POC Glucose 214 H Discharge Diet: 1800 Calorie Control Diet Discharge Activity: Return to Normal Activity Call your doctor if you observe: Fever of 101 or Higher, Shortness of breath Home Medications: Medications to take at Discharge Albuterol Inhaler [Ventolin Hfa] 1 - 2 puff INHALATION Q6H PRN PRN 01/10/14 Levothyroxine [Synthroid] 100 mcg PO DAILY 01/10/14 Oxycodone HCl/Acetaminophen [Percocet 5-325] 7.5 mg PO BID 01/10/14 Pregabalin [Lyrica] 50 mg PO BID 01/10/14 Budesonide/Formoterol 80-4.5 [Symbicort 80-4.5 Mcg Inhaler] 2 puff INHALATION BID 01/18/14 Docusate Sodium [Colace] 100 mg PO BID PRN PRN #10 capsule 01/18/14 proMETHazine tablet [Phenergan tablet] 25 mg PO Q4H PRN PRN #10 tablet 01/18/14 Bupropion HCl [Bupropion HCl Sr] 150 mg PO BID 07/05/18 Clonazepam 1 mg PO TID 07/05/18 Glipizide 5 mg PO DAILY 07/05/18 Loratadine 10 mg PO DAILY 07/05/18 Melatonin 10 mg PO QHS 07/05/18 Montelukast Sodium 10 mg PO DAILY 07/05/18 Oxybutynin [Ditropan] 5 mg PO BID 07/05/18 Oxycodone Myristate [Xtampza ER] 36 mg PO BID 07/05/18 Pantoprazole Sodium 40 mg PO DAILY 07/05/18 Risperidone 2 mg PO QHS 07/05/18 Sumatriptan Succinate 100 mg PO DAILY PRN PRN 07/05/18 Tizanidine HCl 4 mg PO TID 07/05/18 Zolpidem Tartrate 10 mg PO QHS 07/05/18 Primary Care Physician: [facility] Doctor,Out of [Primary Care Provider] - Please Follow Up With: lashell curry When: 2 weeks Please Follow Up With: Columba Ramirez MD When: 1-2 weeks Disposition: Home Minutes spent on discharge:: 40 Patient Condition:: Good Medical Necessity - Tobacco Use Smoking Status: Current every day smoker Tobacco Use: Vapor Meaningful Use Info Meaningful Use Diagnoses (Choose all that apply): None applicable Code Visit Inpatient E&M: 76132 Disch Hosp
--- OUTSIDE RECORDS SUMMARY | 2018-09-06 22:28 | XMS RPT_ITS ---
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 [address] [address] .AUTO DIFF Collected: 02/23/2018 Status: F Source: [facility] 12:00 [facility] REPOSITORY TYPE CODE TESTS RESULT OUT OF REFERENCE UNITS RANGE LAB EAGLE(LOINC) 50.0-75.0 % Neutrophil % 65.2 LAB LYM(LOINC) 20.0-40.0 % Lymphocyte % 25.8 LAB MON(LOINC) 2.0-13.0 % Monocyte % 4.3 LAB EO(LOINC) 0.0-6.0 % Eosinophil % 3.4 LAB BAS(LOINC) 0.0-2.5 % Basophil % 1.3 LAB ABLYM(LOIN 0.90-4.32 10 3/mcL C) Lymphocyte, 1.90 Absolute LAB ANGEL(LOINC 0.09-1.40 10 3/mcL ) Monocyte, 0.30 Absolute LAB AEOS(LOINC 0.00-0.65 10 3/mcL ) Eosinophil, 0.30 Absolute LAB ABAS(LOINC 0.00-0.27 10 3/mcL ) Basophil, 0.10 Absolute Performed By: #### CBC, ADIFF, ANEU, TSH, CMP, GFR, LIPID, A1C #### [place] [address] .NEUABS Collected: 02/23/2018 Status: F Source: [facility] 12:00 [facility] REPOSITORY TYPE CODE TESTS RESULT OUT OF REFERENCE UNITS RANGE LAB ANEU(LOINC) 2.25-8.10 10 3/mcL Neutrophil, 4.80 Absolute Performed By: #### CBC, ADIFF, ANEU, TSH, CMP, GFR, LIPID, A1C #### [address] [address] TSH Collected: 02/23/2018 Status: F Source: [facility] 12:00 [facility] REPOSITORY TYPE CODE TESTS RESULT OUT OF RANGE REFERENCE UNITS LAB TSH(LOINC) 0.360-3.740 mcIU/mL TSH 2.500 Result Comment: Please note as of 12/26/16 new pediatric reference intervals were added for this test. Performed By: #### CBC, ADIFF, ANEU, TSH, CMP, GFR, LIPID, A1C #### [address] [address] CMP Collected: 02/23/2018 Status: F Source: [facility] 12:00 PM [facility] REPOSITORY TYPE CODE TESTS RESULT OUT OF REFERENCE UNITS RANGE LAB GLU(LOINC) 70-110 mg/dL Glucose High Level 147 LAB NA(LOINC) 136-145 mEq/L Sodium Level 138 LAB K(LOINC) 3.5-5.0 mEq/L Potassium Level 4.6 LAB CL(LOINC) 98-110 mEq/L Chloride 99 LAB CO2(LOINC) 22-32 mEq/L CO2 28 LAB EBAL(LOINC 4.0-15.0 mEq/L ) Electrolyte Balance 11.0 LAB BUN(LOINC) 8.0-22.0 mg/dL BUN 16.0 LAB CRE(LOINC) 0.50-1.20 mg/dL Creatinine Lvl (s) 0.81 LAB BC(LOINC) 10.0-22.0 ratio BUN/Creatinine 19.8 Ratio LAB CA(LOINC) 8.4-10.1 mg/dL Calcium Lvl 9.2 LAB PROT(LOINC 6.0-8.5 G/dL ) Total Protein 7.6 LAB ALB(LOINC) 3.2-4.8 G/dL Albumin Level 3.9 LAB GLB(LOINC) 1.5-3.8 G/dL Globulin 3.7 LAB AG(LOINC) 0.9-1.6 ratio A/G Ratio 1.1 LAB BILT(LOINC 0.2-1.2 mg/dL ) Bili Total 0.2 LAB AP(LOINC) 38-126 U/L Alk Phos 110 LAB AST(LOINC) 8-34 U/L AST/SGOT 22 LAB ALT(LOINC) 10-49 U/L ALT/SGPT 33 Performed By: #### CBC, ADIFF, ANEU, TSH, CMP, GFR, LIPID, A1C #### [address] [address] .GFR Collected: 02/23/2018 Status: F Source: [facility] 12:00 [facility] REPOSITORY TYPE CODE TESTS RESULT OUT OF REFERENCE UNITS RANGE LAB GFRAA(LOINC ml/min/1.73 ) sqm GFR >60 Ethiopian Result Comment: GFR Population mean for , Non- Americans Ages 20-29 = 116 mL/min/1.73 sq.m. Ages 30-39 = 107 mL/min/1.73 sq.m. Ages 40-49 = 99 mL/min/1.73 sq.m. Ages 50-59 = 93 mL/min/1.73 sq.m. Ages 60-69 = 85 mL/min/1.73 sq.m. Ages 70+ = 75 mL/min/1.73 sq.m. Chronic Kidney Disease: Less than 60 mL/min/1.73 square meters End Stage Renal Disease: Less than 15 mL/min/1.73 square meters LAB GFRNO(LOINC) ml/min/1.73sqm GFR Non- >60 Result Comment: GFR Population mean for , Non- Americans Ages 20-29 = 116 mL/min/1.73 sq.m. Ages 30-39 = 107 mL/min/1.73 sq.m. Ages 40-49 = 99 mL/min/1.73 sq.m. Ages 50-59 = 93 mL/min/1.73 sq.m. Ages 60-69 = 85 mL/min/1.73 sq.m. Ages 70+ = 75 mL/min/1.73 sq.m. Chronic Kidney Disease: Less than 60 mL/min/1.73 square meters End Stage Renal Disease: Less than 15 mL/min/1.73 square meters Performed By: #### CBC, ADIFF, ANEU, TSH, CMP, GFR, LIPID, A1C #### [place] [address] LIPID Collected: 02/23/2018 Status: F Source: [facility] 12:00 PM [facility] REPOSITORY TYPE CODE TESTS RESULT OUT OF REFERENCE UNITS RANGE LAB CHOL(LOINC 50-199 mg/dL ) Cholesterol High 240 Result Comment: Cholesterol Reference Interval: Less than 200 Desirable 200-239 Borderline high risk 240 and above High risk LAB TRIG(LOINC) 3-149 mg/dL Triglycerides High 387 Result Comment: Triglyceride Reference Interval: Less than 150 Normal 150-199 Borderline high risk 200-499 High risk 500 or higher Very high risk LAB HD(LOINC) 40-59 mg/dL HDL Cholesterol 56 Result Comment: HDL Reference Interval: Less than 40 Low - high risk 60 or above Optimal/lowers risk LAB LDL(LOINC) 0-129 mg/dL LDL Cholesterol 107 Result Comment: LDL is a calculated result and requires a 12-hr fast. LDL Reference Interval: Less than 100 Optimal 100-129 Near or above optimal 130-159 Borderline high risk 160-189 High risk 190 and above Very high risk Performed By: #### CBC, ADIFF, ANEU, TSH, CMP, GFR, LIPID, A1C #### [place] [id number] [place] [address] A1C Collected: 02/23/2018 Status: F Source: [facility] 12:00 PM [facility] REPOSITORY TYPE CODE TESTS RESULT OUT OF RANGE REFERENCE UNITS LAB A1C(LOINC) 4.0-6.0 % High Hgb A1c 7.5 Performed By: #### CBC, ADIFF, ANEU, TSH, CMP, GFR, LIPID, A1C #### [address] [address] NM MYOCARDIAL SPECT Observed: 01/28/2018 Status: F Source: [place] STRESS/REST 10:30 AM [facility] REPOSITORY ORIGINAL Adenosine Stress Cardiac Gated SPECT/CT, Stress/Rest Clinical Statement: Chest pain, shortness of breath, family history of heart disease. Technique: Adenosine dose: 52.4 mg IV Radiopharmaceutical (rest and stress doses): Tc-99m sestamibi IV 6.8 and 19 mCi SPECT acquisition and processing: Images reconstructed into short, vertical long, and horizontal long axis planes. Wall motion evaluation and quantitative LVEF assessment. Concurrent low-dose CT for attenuation correction. Comparison: None Findings: There is no scintigraphic LV chamber dilatation or transient ischemic dilatation. 1) Reversible defects: None to suggest ischemia. 2) Fixed defects: None to suggest scarring/infarction. Gated wall motion evaluation reveals no regional or global hypokinesis. The calculated LVEF is 71% IMPRESSION: No evidence of ischemia or scarring. No wall motion abnormality. I have personally reviewed the images of this examination and agree with the resident's findings and interpretation. Interpreted By: Gui Kaiser DO Preliminary Report By: Santi Velázquez MD Electronically Signed By: Gui Kaiser DO Dictated Date: 01/28/2018 9:44:42 AM Prelim Date: 01/28/2018 9:46:38 AM Sign Date: 01/28/2018 9:57:06 AM TROPI Collected: 01/27/2018 Status: F Source: [facility] [place] 7:40 PM [facility] REPOSITORY TYPE CODE TESTS RESULT OUT OF REFERENCE UNITS RANGE LAB TROPI(LOINC 0.000-0.040 ng/mL ) Troponin I <0.015 Result Comment: Troponin I reference ranges (02/19/14): 0.00-0.040 ng/mL Negative and non-diagnostic. >0.040 ng/mL Consistent with cardiac damage, increased clinical risk and possibility of myocardial infarction. Serial measurements, a rise & fall in test results, clinical history, appropriate symptoms and/or ECG changes may help assess possibility of VA. *Other non-acute coronary syndrome conditions such as CHF, myocarditis, pulmonary emboli, sepsis and cardiac surgery could result in myocardial damage and increased troponin levels. Performed By: #### TROPI #### [place] [address] CT ANGIOGRAPHY CHEST Observed: 01/27/2018 Status: F Source: [facility] W+W/O CONTRAST 6:34 PM [facility] REPOSITORY ORIGINAL CT ANGIOGRAPHY CHEST W+W/O CONTRAST This exam was performed according to our departmental dose optimization program, and includes the following measures where applicable: automated exposure control, adjustment of the mAs and/or kVp accord ing to patient size and/or exam, and an iterative reconstruction algorithm. CT of the thorax was performed without intravenous contrast followed by contrast administration and EKG gated acquisition. 3-D reconstructions were generated and reviewed. Multiplanar axial, coronal, and sagittal reconstructions. CLINICAL STATEMENT: Chest and back pain for 2 days. Denies shortness of breath. COMPARISON: Portable chest, 01/27/2018 FINDINGS: Precontrast evaluation shows no intramural hematoma or mediastinal hemorrhage. The thoracic and imaged upper abdominal aorta show normal contrast opacification. There is no aneurysm or intimal flap to i ndicate dissection. Origins of the brachiocephalic, RIGHT subclavian, RIGHT common carotid, LEFT common carotid, and LEFT subclavian arteries are widely patent. The aortic valve is trileaflet with the R IGHT and LEFT coronary arteries arising from their respective coronary sinuses. There is RIGHT coronary dominance. The heart size is normal, and there is no pericardial effusion. The main pulmonary artery is nondilated. The central airways are clear, and there is no esophageal dilation. A small hiatal hernia is seen with mild circumferential thickening at the gastroesophageal junction. There are no pathologically enlarged thoracic lymph nodes. There is no focal consolidation, mass, or suspicious pulmonary nodule. No pleural effusion or pneumothorax. No acute fracture, compression deformity, or significant listhesis is identified. Images through the upper abdomen are notable for hepatic steatosis. There is a rounded focus of relative sparing on the RIGHT contrast evaluation which measures 4.1 cm in hepatic subsegment VIII. On pos tcontrast assessment, there is associated nodular discontinuous peripheral enhancement, suggestive of hemangioma. IMPRESSION: No intramural hematoma, aortic aneurysm, or dissection. No acute intrathoracic abnormality. Small hiatal hernia with relatively symmetric circumferential thickening of the gastroesophageal junction. This may be sequela of reflux esophagitis, and may be further assessed with esophagogastroduodenoscopy. Hepatic steatosis. Probable 4 cm hemangioma within the RIGHT hepatic lobe (subsegment VIII.) This may be further assessed with nonemergent abdominal ultrasound or dedicated multiphasic CT of the liver. I have personally reviewed the images of this examination and agree with the resident's findings and interpretation Interpreted By: Quincy Simpson MD Preliminary Report By: Karthik Cho MD Electronically Signed By: Quincy Simpson MD Dictated Date: 01/27/2018 7:31:36 PM Prelim Date: 01/27/2018 7:41:45 PM Sign Date: 01/27/2018 8:10:15 PM TROPI Collected: 01/27/2018 Status: F Source: [facility] 3:47 PM [facility] REPOSITORY TYPE CODE TESTS RESULT OUT OF REFERENCE UNITS RANGE LAB TROPI(LOINC 0.000-0.040 ng/mL ) Troponin I <0.015 Result Comment: Troponin I reference ranges (02/19/14): 0.00-0.040 ng/mL Negative and non-diagnostic. >0.040 ng/mL Consistent with cardiac damage, increased clinical risk and possibility of myocardial infarction. Serial measurements, a rise & fall in test results, clinical history, appropriate symptoms and/or ECG changes may help assess possibility of VA. *Other non-acute coronary syndrome conditions such as CHF, myocarditis, pulmonary emboli, sepsis and cardiac surgery could result in myocardial damage and increased troponin levels. Performed By: #### TROPI #### [address] [address] XR CHEST 1 VIEW Observed: 01/27/2018 Status: F Source: [facility] 1:53 PM [facility] REPOSITORY ORIGINAL XR CHEST 1 VIEW PORTABLE AP CLINICAL STATEMENT: abdominal pain; suspect AAA. COMPARISON: 10/23/2017 FINDINGS: The cardiomediastinal contours are normal. There is no consolidation, vascular congestion, pleural effusion, or pneumothorax. No displaced fractures are identified. IMPRESSION: No acute radiographic findings. Interpreted By: Sandra Kaiser MD Preliminary Report By: Sandra Kaiser MD Electronically Signed By: Sandra Kaiser MD Dictated Date: 01/27/2018 2:11:57 PM Prelim Date: 01/27/2018 2:11:57 PM Sign Date: 01/27/2018 2:12:10 PM CBC Collected: 01/27/2018 Status: F Source: [facility] 12:16 PM [facility] REPOSITORY TYPE CODE TESTS RESULT OUT OF REFERENCE UNITS RANGE LAB WBC(LOINC) 4.50-10.80 10 3/mcL WBC 7.90 LAB RBCCT(LOINC 4.10-5.30 10 6/mcL ) Low RBC 3.70 LAB HGB(LOINC) 12.0-16.0 G/dL Hgb 12.1 LAB HCT(LOINC) 34.0-46.0 % Hct 36.9 LAB MCV(LOINC) 80.0-99.0 fL High MCV 99.5 LAB MCH(LOINC) 27.0-33.0 pg MCH 32.7 LAB MCHC(LOINC) 32.0-36.0 G/dL MCHC 32.9 LAB RDW(LOINC) 11.5-15.5 % RDW 14.0 LAB PLT(LOINC) 150-450 10 3/mcL Platelet 325 LAB MPV(LOINC) 6.6-10.5 fL MPV 7.0 Performed By: #### CBC, ADIFF, ANEU, BMP, GFR, TROPI #### [address] [address] .AUTO DIFF Collected: 01/27/2018 Status: F Source: [facility] 12:16 [facility] REPOSITORY TYPE CODE TESTS RESULT OUT OF REFERENCE UNITS RANGE LAB EAGLE(LOINC) 50.0-75.0 % Neutrophil % 65.7 LAB LYM(LOINC) 20.0-40.0 % Lymphocyte % 26.5 LAB MON(LOINC) 2.0-13.0 % Monocyte % 4.9 LAB EO(LOINC) 0.0-6.0 % Eosinophil % 1.9 LAB BAS(LOINC) 0.0-2.5 % Basophil % 1.0 LAB ABLYM(LOIN 0.90-4.32 10 3/mcL C) Lymphocyte, 2.10 Absolute LAB ANGEL(LOINC 0.09-1.40 10 3/mcL ) Monocyte, 0.40 Absolute LAB AEOS(LOINC 0.00-0.65 10 3/mcL ) Eosinophil, 0.20 Absolute LAB ABAS(LOINC 0.00-0.27 10 3/mcL ) Basophil, 0.10 Absolute Performed By: #### CBC, ADIFF, ANEU, BMP, GFR, TROPI #### [place] [address] .NEUABS Collected: 01/27/2018 Status: F Source: [facility] 12:16 [facility] REPOSITORY TYPE CODE TESTS RESULT OUT OF REFERENCE UNITS RANGE LAB ANEU(LOINC) 2.25-8.10 10 3/mcL Neutrophil, 5.20 Absolute Performed By: #### CBC, ADIFF, ANEU, BMP, GFR, TROPI #### [place] [address] BMP Collected: 01/27/2018 Status: F Source: [facility] 12:16 [facility] REPOSITORY TYPE CODE TESTS RESULT OUT OF REFERENCE UNITS RANGE LAB GLU(LOINC) 70-110 mg/dL Glucose High Level 193 LAB NA(LOINC) 136-145 mEq/L Sodium Level 138 LAB K(LOINC) 3.5-5.0 mEq/L Potassium Level 3.6 LAB CL(LOINC) 98-110 mEq/L Chloride 101 LAB CO2(LOINC) 22-32 mEq/L CO2 25 LAB EBAL(LOINC 4.0-15.0 mEq/L ) Electrolyte Balance 12.0 LAB BUN(LOINC) 8.0-22.0 mg/dL BUN 12.0 LAB CRE(LOINC) 0.50-1.20 mg/dL Creatinine Lvl (s) 0.81 LAB BC(LOINC) 10.0-22.0 ratio BUN/Creatinine 14.8 Ratio LAB CA(LOINC) 8.4-10.1 mg/dL Calcium Lvl 8.9 Performed By: #### CBC, ADIFF, ANEU, BMP, GFR, TROPI #### [place] [id number] [place] [address] .GFR Collected: 01/27/2018 Status: F Source: [facility] 12:16 PM [facility] REPOSITORY TYPE CODE TESTS RESULT OUT OF REFERENCE UNITS RANGE LAB GFRAA(LOINC ml/min/1.73 ) sqm GFR >60 Ethiopian Result Comment: GFR Population mean for , Non- Americans Ages 20-29 = 116 mL/min/1.73 sq.m. Ages 30-39 = 107 mL/min/1.73 sq.m. Ages 40-49 = 99 mL/min/1.73 sq.m. Ages 50-59 = 93 mL/min/1.73 sq.m. Ages 60-69 = 85 mL/min/1.73 sq.m. Ages 70+ = 75 mL/min/1.73 sq.m. Chronic Kidney Disease: Less than 60 mL/min/1.73 square meters End Stage Renal Disease: Less than 15 mL/min/1.73 square meters LAB GFRNO(LOINC) ml/min/1.73sqm GFR Non- >60 Result Comment: GFR Population mean for , Non- Americans Ages 20-29 = 116 mL/min/1.73 sq.m. Ages 30-39 = 107 mL/min/1.73 sq.m. Ages 40-49 = 99 mL/min/1.73 sq.m. Ages 50-59 = 93 mL/min/1.73 sq.m. Ages 60-69 = 85 mL/min/1.73 sq.m. Ages 70+ = 75 mL/min/1.73 sq.m. Chronic Kidney Disease: Less than 60 mL/min/1.73 square meters End Stage Renal Disease: Less than 15 mL/min/1.73 square meters Performed By: #### CBC, ADIFF, ANEU, BMP, GFR, TROPI #### [address] [address] TROPI Collected: 01/27/2018 Status: F Source: [facility] 12:16 PM [facility] REPOSITORY TYPE CODE TESTS RESULT OUT OF REFERENCE UNITS RANGE LAB TROPI(LOINC 0.000-0.040 ng/mL ) Troponin I <0.015 Result Comment: Troponin I reference ranges (02/19/14): 0.00-0.040 ng/mL Negative and non-diagnostic. >0.040 ng/mL Consistent with cardiac damage, increased clinical risk and possibility of myocardial infarction. Serial measurements, a rise & fall in test results, clinical history, appropriate symptoms and/or ECG changes may help assess possibility of VA. *Other non-acute coronary syndrome conditions such as CHF, myocarditis, pulmonary emboli, sepsis and cardiac surgery could result in myocardial damage and increased troponin levels. Performed By: #### CBC, ADIFF, ANEU, BMP, GFR, TROPI #### [place] [address] Observed: 10/23/2017 Status: F Source: [facility] CUR 2:40 PM [facility] REPOSITORY . MICRO - Microbiology PROCEDURE: Urine Culture [*1] SOURCE: Urine, Clean Catch BODY SITE: COLLECTED DATE/TIME: 10/23/2017 14:40 EDT RECEIVED DATE/TIME: 10/23/2017 14:44 EDT START DATE/TIME: 10/23/2017 14:44 EDT FREE TEXT SOURCE: FINAL REPORTS Final Report [] Verified Date/Time/Personnel: 10/25/2017 07:40 EDT 20,000 organisms per mL Mixed without predominant isolate(s). Sensitivity Testing not indicated. Probably contamination. Repeat culture suggested. PRELIMINARY REPORTS Preliminary Report [] Verified Date/Time/Personnel: 10/24/2017 07:16 EDT No growth to date Performing Locations *1: This test was performed at: [address], [facility]- , [facility] Performed By: #### CUR #### [address] [address] CBC Collected: 10/23/2017 Status: F Source: [facility] 8:46 AM [facility] REPOSITORY TYPE CODE TESTS RESULT OUT OF REFERENCE UNITS RANGE LAB WBC(LOINC) 4.50-10.80 10 3/mcL WBC 6.10 LAB RBCCT(LOINC 4.10-5.30 10 6/mcL ) Low RBC 3.50 LAB HGB(LOINC) 12.0-16.0 G/dL Low Hgb 11.7 LAB HCT(LOINC) 34.0-46.0 % Hct 34.0 LAB MCV(LOINC) 80.0-99.0 fL MCV 97.0 LAB MCH(LOINC) 27.0-33.0 pg High MCH 33.5 LAB MCHC(LOINC) 32.0-36.0 G/dL MCHC 34.5 LAB RDW(LOINC) 11.5-15.5 % RDW 13.8 LAB PLT(LOINC) 150-450 10 3/mcL Platelet 288 LAB MPV(LOINC) 6.6-10.5 fL MPV 7.1 Performed By: #### CBC, ADIFF, ANEU, DIMER, BMP, GFR, TROPI #### [address] [address] .AUTO DIFF Collected: 10/23/2017 Status: F Source: [facility] 8:46 AM [facility] REPOSITORY TYPE CODE TESTS RESULT OUT OF REFERENCE UNITS RANGE LAB EALGE(LOINC) 50.0-75.0 % Neutrophil % 61.2 LAB LYM(LOINC) 20.0-40.0 % Lymphocyte % 27.1 LAB MON(LOINC) 2.0-13.0 % Monocyte % 8.4 LAB EO(LOINC) 0.0-6.0 % Eosinophil % 2.8 LAB BAS(LOINC) 0.0-2.5 % Basophil % 0.5 LAB ABLYM(LOIN 0.90-4.32 10 3/mcL C) Lymphocyte, 1.60 Absolute LAB ANGEL(LOINC 0.09-1.40 10 3/mcL ) Monocyte, 0.50 Absolute LAB AEOS(LOINC 0.00-0.65 10 3/mcL ) Eosinophil, 0.20 Absolute LAB ABAS(LOINC 0.00-0.27 10 3/mcL ) Basophil, 0.00 Absolute Performed By: #### CBC, ADIFF, ANEU, DIMER, BMP, GFR, TROPI #### [address] [address] .NEUABS Collected: 10/23/2017 Status: F Source: [facility] 8:46 AM [facility] REPOSITORY TYPE CODE TESTS RESULT OUT OF REFERENCE UNITS RANGE LAB ANEU(LOINC) 2.25-8.10 10 3/mcL Neutrophil, 3.70 Absolute Performed By: #### CBC, ADIFF, ANEU, DIMER, BMP, GFR, TROPI #### [place] [address] DIMER Collected: 10/23/2017 Status: F Source: [facility] 8:46 AM [facility] REPOSITORY TYPE CODE TESTS RESULT OUT OF RANGE REFERENCE UNITS LAB DIMER(LOINC 0-230 ng/mL D-DU ) D-Dimer <200 Result Comment: Results reported in D- DU ng/ml. Negative for D-dimer. DVT/PE is highly unlikely. Note: False negative results may be seen in patients on anticoagulant therapy. The result of the D-Dimer test should be evaluated in the context of all the clinical and laboratory data available. In those instances where the laboratory result does not agree with the clinical evaluation, additional tests should be performed accordingly. Performed By: #### CBC, ADIFF, ANEU, DIMER, BMP, GFR, TROPI #### [place] [address] BMP Collected: 10/23/2017 Status: F Source: [facility] 8:46 AM [facility] REPOSITORY TYPE CODE TESTS RESULT OUT OF REFERENCE UNITS RANGE LAB GLU(LOINC) 70-110 mg/dL Glucose High Level 127 LAB NA(LOINC) 136-145 mEq/L Sodium Level 139 LAB K(LOINC) 3.5-5.0 mEq/L Potassium Level 4.2 LAB CL(LOINC) 98-110 mEq/L Chloride 105 LAB CO2(LOINC) 22-32 mEq/L CO2 27 LAB EBAL(LOINC 4.0-15.0 mEq/L ) Electrolyte Balance 7.0 LAB BUN(LOINC) 8.0-22.0 mg/dL BUN 11.0 LAB CRE(LOINC) 0.50-1.20 mg/dL Creatinine Lvl (s) 0.74 LAB BC(LOINC) 10.0-22.0 ratio BUN/Creatinine 14.9 Ratio LAB CA(LOINC) 8.4-10.1 mg/dL Calcium Lvl 8.4 Performed By: #### CBC, ADIFF, ANEU, DIMER, BMP, GFR, TROPI #### [address] [address] .GFR Collected: 10/23/2017 Status: F Source: [facility] 8:46 AM [facility] REPOSITORY TYPE CODE TESTS RESULT OUT OF REFERENCE UNITS RANGE LAB GFRAA(LOINC ml/min/1.73 ) sqm GFR >60 Ethiopian Result Comment: GFR Population mean for , Non- Americans Ages 20-29 = 116 mL/min/1.73 sq.m. Ages 30-39 = 107 mL/min/1.73 sq.m. Ages 40-49 = 99 mL/min/1.73 sq.m. Ages 50-59 = 93 mL/min/1.73 sq.m. Ages 60-69 = 85 mL/min/1.73 sq.m. Ages 70+ = 75 mL/min/1.73 sq.m. Chronic Kidney Disease: Less than 60 mL/min/1.73 square meters End Stage Renal Disease: Less than 15 mL/min/1.73 square meters LAB GFRNO(LOINC) ml/min/1.73sqm GFR Non- >60 Result Comment: GFR Population mean for , Non- Americans Ages 20-29 = 116 mL/min/1.73 sq.m. Ages 30-39 = 107 mL/min/1.73 sq.m. Ages 40-49 = 99 mL/min/1.73 sq.m. Ages 50-59 = 93 mL/min/1.73 sq.m. Ages 60-69 = 85 mL/min/1.73 sq.m. Ages 70+ = 75 mL/min/1.73 sq.m. Chronic Kidney Disease: Less than 60 mL/min/1.73 square meters End Stage Renal Disease: Less than 15 mL/min/1.73 square meters Performed By: #### CBC, ADIFF, ANEU, DIMER, BMP, GFR, TROPI #### [address] [address] TROPI Collected: 10/23/2017 Status: F Source: [facility] 8:46 AM [facility] REPOSITORY TYPE CODE TESTS RESULT OUT OF REFERENCE UNITS RANGE LAB TROPI(LOINC 0.000-0.040 ng/mL ) Troponin I <0.015 Result Comment: Troponin I reference ranges (02/19/14): 0.00-0.040 ng/mL Negative and non-diagnostic. >0.040 ng/mL Consistent with cardiac damage, increased clinical risk and possibility of myocardial infarction. Serial measurements, a rise & fall in test results, clinical history, appropriate symptoms and/or ECG changes may help assess possibility of VA. *Other non-acute coronary syndrome conditions such as CHF, myocarditis, pulmonary emboli, sepsis and cardiac surgery could result in myocardial damage and increased troponin levels. Performed By: #### CBC, ADIFF, ANEU, DIMER, BMP, GFR, TROPI #### [place] [id number] [place] [address] XR CHEST 1 VIEW Observed: 10/23/2017 Status: F Source: [facility] 8:08 AM [facility] REPOSITORY ORIGINAL XR CHEST 1 VIEW PORTABLE AP TIME: 0834 hours CLINICAL STATEMENT: SOB/cough/fever COMPARISON: 10/14/2017 FINDINGS: The cardiomediastinal contours are normal. There is no consolidation, vascular congestion, pleural effusion, or pneumothorax. No displaced fractures are identified. IMPRESSION: No acute radiographic findings. Interpreted By: Kvng Alcala DO Preliminary Report By: Kvng Alcala DO Electronically Signed By: Kvng Alcala DO Dictated Date: 10/23/2017 9:04:39 AM Prelim Date: 10/23/2017 9:04:39 AM Sign Date: 10/23/2017 9:05:03 AM URINE DRUG SCREEN Collected: 10/18/2017 Status: F Source: [facility]) 10:42 AM [facility] REPOSITORY Order Comment: List of Drugs Taken or Suspected? UNK TYPE CODE TESTS RESULT OUT OF RANGE REFERENCE UNITS LAB L505.0075 TO BE Normal CONFIRMED Result Comment: CONFIRMATORY TESTING FOR ALL POSITIVE URINE DRUG SCREEN RESULTS WILL ONLY BE SENT OUT UPON PHYSICIAN ORDER. EwirelessgearTA Urine Drug Screen methods provide only preliminary analytical test results. A more specific alternate chemical method must be used in order to obtain a confirmed analytical result. Gas chromatography/mass spectrometery (GC/MS) is the preferred confirmatory method. Clinical consideration and professional judgement should be applied to any drug of abuse test result, particularly when preliminary positive results are used. URINE TCA TESTING MUST BE ORDERED SEPARATELY. USE TEST MNEMONIC: [facility] LAB L505.5005 VISTA UDS PH 7 Normal LAB L505.5015 <1000 ng/mL AMPHETAMINES Normal NEGATIVE LAB L505.5025 < 200 ng/mL BARBITIURATES Normal NEGATIVE LAB L505.5035 < 200 ng/mL BENZODIAZIPINE Normal NEGATIVE LAB L505.5045 < 300 ng/mL COCAINE Normal NEGATIVE LAB L505.5055 < 500 High ng/mL ECSTACY POSITIVE LAB L505.5065 < 300 ng/mL METHADONE Normal NEGATIVE LAB L505.5075 < 300 ng/mL OPIATES Normal NEGATIVE LAB L505.5085 < 25 ng/mL PCP Normal NEGATIVE LAB L505.5095 < 50 ng/mL THC Normal NEGATIVE Performed By: #### L505.5000 #### [facility] [address] [place], [address] MISCELLANEOUS LAB Collected: 10/18/2017 Status: F Source: ERASMO PROCEDURE 10:42 AM [facility] REPOSITORY Order Comment: Test(s) Ordered: URINE TOXICOLOGY [id number] RUN LOWEST TEST TYPE CODE TESTS RESULT OUT OF RANGE REFERENCE UNITS LAB L801.1541 Normal [facility] LAB TEST Result Comment: [id number] 6+OXYCODONE-BUND (ng/mL) DRUG RESULT SCREEN CUTOFF ____ Amphetamines,Urine Negative ng/mL 1000 Amphetamine test includes Amphetamine and Methamphetamine. Barbiturates Negative ng/mL 200 Benzodiazepines Negative ng/mL 200 Cannabinoid Negative ng/mL 20 Cocaine (Metab) Negative ng/mL 300 Opiates Negative ng/mL 300 Opiates test includes Codeine, Morphine, Hydromorphone, Hydrocodone. Oxycodone/Oxymorphone,Urine POSITIVE ng/mL 300 Test includes Oxydodone and Oxymorphone. Oxycodone Positive Oxycodone GC/MS 693 ng/mL 300 Oxymorphone Negative 300 TESTING PERFORMED AT [facility]. ORIGINAL REPORT ON FILE IN LAB CONTAINS ADDITIONAL TEST SITE INFORMATION. Performed By: #### L801.1541 #### [facility] [place], [address] CBC Collected: 10/14/2017 Status: F Source: [facility] 11:26 AM [facility] REPOSITORY TYPE CODE TESTS RESULT OUT OF REFERENCE UNITS RANGE LAB WBC(LOINC) 4.50-10.80 10 3/mcL WBC 6.30 LAB RBCCT(LOINC 4.10-5.30 10 6/mcL ) Low RBC 3.36 LAB HGB(LOINC) 12.0-16.0 G/dL Low Hgb 11.1 LAB HCT(LOINC) 34.0-46.0 % Low Hct 32.5 LAB MCV(LOINC) 80.0-99.0 fL MCV 96.7 LAB MCH(LOINC) 27.0-33.0 pg MCH 33.0 LAB MCHC(LOINC) 32.0-36.0 G/dL MCHC 34.1 LAB RDW(LOINC) 11.5-15.5 % RDW 13.2 LAB PLT(LOINC) 150-450 10 3/mcL Platelet 249 LAB MPV(LOINC) 6.6-10.5 fL MPV 7.3 Performed By: #### CBC, ADIFF, ANEU, BMP, GFR, TROPI #### [place] [address] .AUTO DIFF Collected: 10/14/2017 Status: F Source: [facility] 11:26 AM [facility] REPOSITORY TYPE CODE TESTS RESULT OUT OF REFERENCE UNITS RANGE LAB EAGLE(LOINC) 50.0-75.0 % Neutrophil % 63.1 LAB LYM(LOINC) 20.0-40.0 % Lymphocyte % 28.3 LAB MON(LOINC) 2.0-13.0 % Monocyte % 5.8 LAB EO(LOINC) 0.0-6.0 % Eosinophil % 1.9 LAB BAS(LOINC) 0.0-2.5 % Basophil % 0.9 LAB ABLYM(LOIN 0.90-4.32 10 3/mcL C) Lymphocyte, 1.80 Absolute LAB ANGEL(LOINC 0.09-1.40 10 3/mcL ) Monocyte, 0.40 Absolute LAB AEOS(LOINC 0.00-0.65 10 3/mcL ) Eosinophil, 0.10 Absolute LAB ABAS(LOINC 0.00-0.27 10 3/mcL ) Basophil, 0.10 Absolute Performed By: #### CBC, ADIFF, ANEU, BMP, GFR, TROPI #### [place] [address] .NEUABS Collected: 10/14/2017 Status: F Source: [facility] 11:26 AM [facility] REPOSITORY TYPE CODE TESTS RESULT OUT OF REFERENCE UNITS RANGE LAB ANEU(LOINC) 2.25-8.10 10 3/mcL Neutrophil, 4.00 Absolute Performed By: #### CBC, ADIFF, ANEU, BMP, GFR, TROPI #### [place] [address] BMP Collected: 10/14/2017 Status: F Source: [facility] 11:26 AM [facility] REPOSITORY TYPE CODE TESTS RESULT OUT OF REFERENCE UNITS RANGE LAB GLU(LOINC) 70-110 mg/dL Glucose High Level 114 LAB NA(LOINC) 136-145 mEq/L Low Sodium Level 135 LAB K(LOINC) 3.5-5.0 mEq/L Potassium Level 4.4 LAB CL(LOINC) 98-110 mEq/L Chloride 102 LAB CO2(LOINC) 22-32 mEq/L CO2 26 LAB EBAL(LOINC 4.0-15.0 mEq/L ) Electrolyte Balance 7.0 LAB BUN(LOINC) 8.0-22.0 mg/dL BUN 10.0 LAB CRE(LOINC) 0.50-1.20 mg/dL Creatinine Lvl (s) 0.72 LAB BC(LOINC) 10.0-22.0 ratio BUN/Creatinine 13.9 Ratio LAB CA(LOINC) 8.4-10.1 mg/dL Calcium Lvl 8.6 Performed By: #### CBC, ADIFF, ANEU, BMP, GFR, TROPI #### [place] [address] .GFR Collected: 10/14/2017 Status: F Source: [facility] 11:26 AM [facility] REPOSITORY TYPE CODE TESTS RESULT OUT OF REFERENCE UNITS RANGE LAB GFRAA(LOINC ml/min/1.73 ) sqm GFR >60 Ethiopian Result Comment: GFR Population mean for , Non- Americans Ages 20-29 = 116 mL/min/1.73 sq.m. Ages 30-39 = 107 mL/min/1.73 sq.m. Ages 40-49 = 99 mL/min/1.73 sq.m. Ages 50-59 = 93 mL/min/1.73 sq.m. Ages 60-69 = 85 mL/min/1.73 sq.m. Ages 70+ = 75 mL/min/1.73 sq.m. Chronic Kidney Disease: Less than 60 mL/min/1.73 square meters End Stage Renal Disease: Less than 15 mL/min/1.73 square meters LAB GFRNO(LOINC) ml/min/1.73sqm GFR Non- >60 Result Comment: GFR Population mean for , Non- Americans Ages 20-29 = 116 mL/min/1.73 sq.m. Ages 30-39 = 107 mL/min/1.73 sq.m. Ages 40-49 = 99 mL/min/1.73 sq.m. Ages 50-59 = 93 mL/min/1.73 sq.m. Ages 60-69 = 85 mL/min/1.73 sq.m. Ages 70+ = 75 mL/min/1.73 sq.m. Chronic Kidney Disease: Less than 60 mL/min/1.73 square meters End Stage Renal Disease: Less than 15 mL/min/1.73 square meters Performed By: #### CBC, ADIFF, ANEU, BMP, GFR, TROPI #### [address] [address] TROPI Collected: 10/14/2017 Status: F Source: [facility] 11:26 AM [facility] REPOSITORY TYPE CODE TESTS RESULT OUT OF REFERENCE UNITS RANGE LAB TROPI(LOINC 0.000-0.040 ng/mL ) Troponin I <0.015 Result Comment: Troponin I reference ranges (02/19/14): 0.00-0.040 ng/mL Negative and non-diagnostic. >0.040 ng/mL Consistent with cardiac damage, increased clinical risk and possibility of myocardial infarction. Serial measurements, a rise & fall in test results, clinical history, appropriate symptoms and/or ECG changes may help assess possibility of VA. *Other non-acute coronary syndrome conditions such as CHF, myocarditis, pulmonary emboli, sepsis and cardiac surgery could result in myocardial damage and increased troponin levels. Performed By: #### CBC, ADIFF, ANEU, BMP, GFR, TROPI #### [place] [address] XR CHEST 1 VIEW Observed: 10/14/2017 Status: F Source: [facility] 11:13 AM [facility] REPOSITORY ORIGINAL XR CHEST 1 VIEW Clinical Statement: chest pain. COMPARISON: 07/21/2017 FINDINGS: There is no focal consolidation. No pleural fluid or pneumothorax. The heart size is within normal limits. There is no visible rib fracture or aggressive osseous lesion. IMPRESSION: No acute cardiopulmonary abnormality. Interpreted By: Raul Sahni Preliminary Report By: Raul Sahni Electronically Signed By: Raul Sahni Dictated Date: 10/14/2017 11:44:43 AM Prelim Date: 10/14/2017 11:44:43 AM Sign Date: 10/14/2017 11:47:50 AM [place] MAMMOGRAM SCREENING Observed: 09/09/2017 Status: F Source: [facility] BILATERAL W/[place] 12:30 PM [facility] REPOSITORY ORIGINAL FROM: [place] [address] PROCEDURE FOR: EDYTA COHEN [address] [place] [address] Home: PID#: [id number] Exam#: [id number] : 1965 Age: 51 TO: LASHELL HUTCHINSON DO [facility] [address] [place] [address] #[id number] DIGITAL SCREENING MAMMOGRAM 3D/2D WITH CAD: 09/09/2017 Comparison is made to exam dated: 07/15/2016 mammogram - [facility]. There are scattered fibroglandular elements in both breasts. Current study was also evaluated with a Computer Aided Detection (CAD) system. There are benign calcifications in both breasts. There also is a biopsy clip in the right breast. Additionally, there are post operative findings in the left breast. No significant masses, calcifications, or other findings are seen in either breast. There has been no significant interval change. IMPRESSION: BENIGN There is no mammographic evidence of malignancy. A 1 year screening mammogram is recommended. I have personally reviewed the images of the examination and agree with the findings and interpretation. CHIDI RAMOS M.D. vfg,da/penrad:09/09/2017 14:26:11 Horticultural Farmer: MARYJANE MATHEW(Helio)(M), [facility] letter sent: Normal BI-RADS 1&2 Mammogram BI-RADS: 2 Benign BMP Collected: 08/13/2017 Status: F Source: [facility] 4:54 AM [facility] REPOSITORY TYPE CODE TESTS RESULT OUT OF REFERENCE UNITS RANGE LAB GLU(LOINC) 70-110 mg/dL Glucose High Level 144 LAB NA(LOINC) 136-145 mEq/L Sodium Level 140 LAB K(LOINC) 3.5-5.0 mEq/L Potassium Level 4.2 LAB CL(LOINC) 98-110 mEq/L Chloride 107 LAB CO2(LOINC) 22-32 mEq/L CO2 24 LAB EBAL(LOINC 4.0-15.0 mEq/L ) Electrolyte Balance 9.0 LAB BUN(LOINC) 8.0-22.0 mg/dL BUN 8.0 LAB CRE(LOINC) 0.50-1.20 mg/dL Creatinine Lvl (s) 0.58 LAB BC(LOINC) 10.0-22.0 ratio BUN/Creatinine 13.8 Ratio LAB CA(LOINC) 8.4-10.1 mg/dL Calcium Lvl 8.7 Performed By: #### BMP, GFR #### [place] [address] .GFR Collected: 08/13/2017 Status: F Source: [facility] 4:54 AM [facility] REPOSITORY TYPE CODE TESTS RESULT OUT OF REFERENCE UNITS RANGE LAB GFRAA(LOINC ml/min/1.73 ) sqm GFR >60 Ethiopian Result Comment: GFR Population mean for , Non- Americans Ages 20-29 = 116 mL/min/1.73 sq.m. Ages 30-39 = 107 mL/min/1.73 sq.m. Ages 40-49 = 99 mL/min/1.73 sq.m. Ages 50-59 = 93 mL/min/1.73 sq.m. Ages 60-69 = 85 mL/min/1.73 sq.m. Ages 70+ = 75 mL/min/1.73 sq.m. Chronic Kidney Disease: Less than 60 mL/min/1.73 square meters End Stage Renal Disease: Less than 15 mL/min/1.73 square meters LAB GFRNO(LOINC) ml/min/1.73sqm GFR Non- >60 Result Comment: GFR Population mean for , Non- Americans Ages 20-29 = 116 mL/min/1.73 sq.m. Ages 30-39 = 107 mL/min/1.73 sq.m. Ages 40-49 = 99 mL/min/1.73 sq.m. Ages 50-59 = 93 mL/min/1.73 sq.m. Ages 60-69 = 85 mL/min/1.73 sq.m. Ages 70+ = 75 mL/min/1.73 sq.m. Chronic Kidney Disease: Less than 60 mL/min/1.73 square meters End Stage Renal Disease: Less than 15 mL/min/1.73 square meters Performed By: #### BMP, GFR #### [place] [address] XR FLUORO 1-2 HRS Observed: 08/12/2017 Status: F Source: [facility] TECH TIME 1:00 PM [facility] REPOSITORY ORIGINAL Fluoroscopy, 08/12/2017 5:50 PM INDICATION: Spinal stimulator removal COMPARISON: No FLUOROSCOPY TIME: 8 seconds FINDINGS: 2 fluoroscopic images are provided showing instrumentation and the tip of the stimulator lead. IMPRESSION: Fluoroscopy provided to the orthopedic service. Interpreted By: Estelle Flaherty MD Preliminary Report By: Estelle Flaherty MD Electronically Signed By: Estelle Flaherty MD Dictated Date: 08/12/2017 7:35:01 PM Prelim Date: 08/12/2017 7:35:01 PM Sign Date: 08/12/2017 7:35:49 PM XR CHEST 2 VIEWS Observed: 07/21/2017 Status: F Source: [facility] 2:55 PM [facility] REPOSITORY ORIGINAL XR CHEST 2 VIEWS CLINICAL STATEMENT: ASTHMA, COPD COMPARISON: 03/14/2017 FINDINGS:Cardiac contours are stable. Fasting the uterus present. There is no pulmonary vascular congestion or consolidation. No pleural effusion or pneumothorax is noted. Healed right posterior lateral eighth rib fracture is again noted IMPRESSION:No acute process Interpreted By: Sandra Kaiser MD Preliminary Report By: Sandra Kaiser MD Electronically Signed By: Sandra Kaiser MD Dictated Date: 07/21/2017 3:44:59 PM Prelim Date: 07/21/2017 3:44:59 PM Sign Date: 07/21/2017 3:45:34 PM CBC Collected: 07/21/2017 Status: F Source: [facility] 2:05 PM [facility] REPOSITORY TYPE CODE TESTS RESULT OUT OF REFERENCE UNITS RANGE LAB WBC(LOINC) 4.50-10.80 10 3/mcL WBC 8.30 LAB RBCCT(LOINC 4.10-5.30 10 6/mcL ) Low RBC 3.87 LAB HGB(LOINC) 12.0-16.0 G/dL Hgb 13.1 LAB HCT(LOINC) 34.0-46.0 % Hct 38.1 LAB MCV(LOINC) 80.0-99.0 fL MCV 98.6 LAB MCH(LOINC) 27.0-33.0 pg High MCH 33.7 LAB MCHC(LOINC) 32.0-36.0 G/dL MCHC 34.2 LAB RDW(LOINC) 11.5-15.5 % RDW 12.7 LAB PLT(LOINC) 150-450 10 3/mcL Platelet 308 LAB MPV(LOINC) 6.6-10.5 fL MPV 7.6 Performed By: #### CBC, ADIFF, ANEU, BMP, GFR, APTT, PRO, A1C, PRALB, TRF #### [place] [address] .AUTO DIFF Collected: 07/21/2017 Status: F Source: [facility] 2:05 PM [facility] REPOSITORY TYPE CODE TESTS RESULT OUT OF REFERENCE UNITS RANGE LAB EAGLE(LOINC) 50.0-75.0 % Neutrophil % 63.5 LAB LYM(LOINC) 20.0-40.0 % Lymphocyte % 24.8 LAB MON(LOINC) 2.0-13.0 % Monocyte % 9.3 LAB EO(LOINC) 0.0-6.0 % Eosinophil % 1.8 LAB BAS(LOINC) 0.0-2.5 % Basophil % 0.6 LAB ABLYM(LOIN 0.90-4.32 10 3/mcL C) Lymphocyte, 2.10 Absolute LAB ANGEL(LOINC 0.09-1.40 10 3/mcL ) Monocyte, 0.80 Absolute LAB AEOS(LOINC 0.00-0.65 10 3/mcL ) Eosinophil, 0.20 Absolute LAB ABAS(LOINC 0.00-0.27 10 3/mcL ) Basophil, 0.00 Absolute Performed By: #### CBC, ADIFF, ANEU, BMP, GFR, APTT, PRO, A1C, PRALB, TRF #### [place] [address] .NEUABS Collected: 07/21/2017 Status: F Source: [facility] 2:05 [facility] REPOSITORY TYPE CODE TESTS RESULT OUT OF REFERENCE UNITS RANGE LAB ANEU(LOINC) 2.25-8.10 10 3/mcL Neutrophil, 5.30 Absolute Performed By: #### CBC, ADIFF, ANEU, BMP, GFR, APTT, PRO, A1C, PRALB, TRF #### [place] [address] BMP Collected: 07/21/2017 Status: F Source: [facility] 2:05 [facility] REPOSITORY TYPE CODE TESTS RESULT OUT OF REFERENCE UNITS RANGE LAB GLU(LOINC) 70-110 mg/dL Glucose Level 98 LAB NA(LOINC) 136-145 mEq/L Low Sodium Level 135 LAB K(LOINC) 3.5-5.0 mEq/L Potassium Level 4.9 LAB CL(LOINC) 98-110 mEq/L Chloride 98 LAB CO2(LOINC) 22-32 mEq/L CO2 29 LAB EBAL(LOINC 4.0-15.0 mEq/L ) Electrolyte Balance 8.0 LAB BUN(LOINC) 8.0-22.0 mg/dL BUN 11.0 LAB CRE(LOINC) 0.50-1.20 mg/dL Creatinine Lvl (s) 0.83 LAB BC(LOINC) 10.0-22.0 ratio BUN/Creatinine 13.3 Ratio LAB CA(LOINC) 8.4-10.1 mg/dL Calcium Lvl 9.9 Performed By: #### CBC, ADIFF, ANEU, BMP, GFR, APTT, PRO, A1C, PRALB, TRF #### [address] [address] .GFR Collected: 07/21/2017 Status: F Source: [facility] 2:05 [facility] REPOSITORY TYPE CODE TESTS RESULT OUT OF REFERENCE UNITS RANGE LAB GFRAA(LOINC ml/min/1.73 ) sqm GFR >60 Ethiopian Result Comment: GFR Population mean for , Non- Americans Ages 20-29 = 116 mL/min/1.73 sq.m. Ages 30-39 = 107 mL/min/1.73 sq.m. Ages 40-49 = 99 mL/min/1.73 sq.m. Ages 50-59 = 93 mL/min/1.73 sq.m. Ages 60-69 = 85 mL/min/1.73 sq.m. Ages 70+ = 75 mL/min/1.73 sq.m. Chronic Kidney Disease: Less than 60 mL/min/1.73 square meters End Stage Renal Disease: Less than 15 mL/min/1.73 square meters LAB GFRNO(LOINC) ml/min/1.73sqm GFR Non- >60 Result Comment: GFR Population mean for , Non- Americans Ages 20-29 = 116 mL/min/1.73 sq.m. Ages 30-39 = 107 mL/min/1.73 sq.m. Ages 40-49 = 99 mL/min/1.73 sq.m. Ages 50-59 = 93 mL/min/1.73 sq.m. Ages 60-69 = 85 mL/min/1.73 sq.m. Ages 70+ = 75 mL/min/1.73 sq.m. Chronic Kidney Disease: Less than 60 mL/min/1.73 square meters End Stage Renal Disease: Less than 15 mL/min/1.73 square meters Performed By: #### CBC, ADIFF, ANEU, BMP, GFR, APTT, PRO, A1C, PRALB, TRF #### [address] [address] APTT Collected: 07/21/2017 Status: F Source: [facility] 2:05 [facility] REPOSITORY TYPE CODE TESTS RESULT OUT OF REFERENCE UNITS RANGE LAB PDOSE(LOIN C) Heparin dose Unknown (APTT) LAB APTT0(LOIN 25.0-35.0 seconds C) APTT 29.7 Result Comment: For Heparin anticoagulation therapy, the recommended therapeutic range is: 54-77 seconds (APTT Correlation with Anti-Xa therapeutic range of 0.3-0.7 units/ml). PLEASE REFERENCE THE PHARMACY PROTOCOL FOR DOSING. Performed By: #### CBC, ADIFF, ANEU, BMP, GFR, APTT, PRO, A1C, PRALB, TRF #### [address] [address] PRO Collected: 07/21/2017 Status: F Source: [facility] 2:05 [facility] REPOSITORY TYPE CODE TESTS RESULT OUT OF REFERENCE UNITS RANGE LAB PT(LOINC) 9.0-14.5 seconds Protime 11.8 Result Comment: Effective 12/27/07, Protime results may be affected by some antibiotics (i.e. Ciprofloxacin, Azithromycin, Bactrim) which may potentiate the action of oral anticoagulants, with further increase in Protime/INR. LAB INR(LOINC) ratio PT International Ratio 1.0 Result Comment: The [employer] [employer] (CHEST, 1992, 102:312S-25S) recommended therapeutic range for oral anticoagulant therapy is: LOW RISK: Prophylaxis of venous thrombosis INR: 2.0-3.0 Treatment of pulmonary embolism 2.0-3.0 Prevention of systemic embolism 2.0-3.0 HIGH RISK: Mechanical prosthetic valves 2.5-3.5 Performed By: #### CBC, ADIFF, ANEU, BMP, GFR, APTT, PRO, A1C, PRALB, TRF #### [address] [address] A1C Collected: 07/21/2017 Status: F Source: [facility] 2:05 [facility] REPOSITORY TYPE CODE TESTS RESULT OUT OF RANGE REFERENCE UNITS LAB A1C(LOINC) 4.0-6.0 % High Hgb A1c 6.6 Performed By: #### CBC, ADIFF, ANEU, BMP, GFR, APTT, PRO, A1C, PRALB, TRF #### [address] [address] PRALB Collected: 07/21/2017 Status: F Source: [facility] 2:05 PM [facility] REPOSITORY TYPE CODE TESTS RESULT OUT OF REFERENCE UNITS RANGE LAB PRALB(LOIN 18.0-38.0 mg/dL C) Prealbumin 29.6 Performed By: #### CBC, ADIFF, ANEU, BMP, GFR, APTT, PRO, A1C, PRALB, TRF #### [facility] [address] [place] [address] TRF Collected: 07/21/2017 Status: F Source: [facility] 2:05 PM [facility] REPOSITORY TYPE CODE TESTS RESULT OUT OF REFERENCE UNITS RANGE LAB TRF(LOINC) 202-336 mg/dL Transferrin 287 Performed By: #### CBC, ADIFF, ANEU, BMP, GFR, APTT, PRO, A1C, PRALB, TRF #### [place] [id number] [place] [address] ALLERGIES ALLERGIES DATE TYPE / NAME / CODE REACTION SEVERITY SOURCE CODE 01/18/2014 Drug propoxyphene Nausea Unknown [place] Allergy/41 napsylate/[id number] [facility] [id number]( 76(RXNORM) [facility]) Repository 01/18/2014 Drug Penicillins/[id number] Unknown Unknown [place] Allergy/41 0476(RXNORM) [facility] [id number]([facility]) Repository 01/18/2014 Drug ampicillin/[id number] Unknown Unknown [place] Allergy/41 692(RXNORM) [facility] 4398989([facility]) Repository 01/18/2014 Drug banana/[id number]( Anaphylaxis Unknown [place] Allergy/41 RXNORM) [facility] [id number]([facility]) Repository 01/18/2014 Drug hydrocodone Nausea Unknown [place] Allergy/41 bitartrate/[id number] [facility] 8672860( 555(RXNORM) [facility]) Repository 12/18/2013 Drug amoxicillin/[id number] Unknown Unknown [place] Allergy/41 3675(RXNORM) [facility] 1768489([facility]) Repository 12/18/2013 Drug tramadol/[id number] Unknown Unknown [place] Allergy/41 0(RXNORM) [facility] 7849600([facility]) Repository ENCOUNTERS ENCOUNTERS ADMIT/DISCHARGE ACCOUNT NUMBER ADMITTING ENCOUNTER LOCATION SOURCE CLASS 07/05/2018 [id number] [place], Ambulatory BMSBuilding: Erasmo Ghasem BMS.[facility] Repository 07/05/2018/07/07/19 [id number] [place], Inpatient Erasmo Erasmo 19 Ghasem Encounter [facility] ding:ICURoom Repository : SYS98Szr: 1 07/05/2018 [id number] [place], Ambulatory BMSBuilding: Erasmo Ghasem BMS.[facility] Repository 07/05/2018 [id number] [place], Ambulatory BMSBuilding: Erasmo Ghasem BMS.[facility] Repository 03/21/2018 [id number] Ambulatory [address] [place] [address] Repository 03/08/2018/03/08/20 [id number] Emergency ABuilding:KATHY Morales [address] [place] [address] Repository 02/23/2018/02/28/20 [id number] Ambulatory [facility] Repository 02/08/2018 [id number] [facility] 01/27/2018/01/29/20 [id number] [place] Ambulatory ABuilding:DAVIS bond MD, Amy Man: [facility] OWX4Uug: A [facility] Repository 11/02/2017 [id number] [facility] 10/23/2017/10/27/19 [id number] EVANGELINA MARTE, Inpatient ABuilding:ME Carmen GAFFNEY Encounter 6SRoom: [facility] 6658Bed: [facility] Repository 10/18/2017 [id number] Ambulatory [facility] ding:LAB Repository 10/14/2017/10/15/19 [id number] Emergency ABuilding:ER Carmen [address] [place] [address] Repository 09/09/2017/09/10/19 [id number] Ambulatory ABuilding: Carmen Hernandez [facility] Repository 08/12/2017/08/14/19 [id number] MICHEL MARTE, Ambulatory ABuilding:ME Carmen Galvan 5SRoom: [facility] 5683Bed: A [facility] Repository 07/21/2017/07/21/19 [id number] Ambulatory Ramiro Morales 18 ing:[facility] Repository PAYERS PAYERS ENCOUNTER GUARANTOR PAYER SUBSCRIBER SOURCE 07/05/2018 EDYTA D Primary EDYAT D [place] [id number] Insurance:MEDICARE CASDORPHDOB: [facility] PART A [place] [id number] Number: Repository [phone]: 330 [id number] [phone] () Date:2018-07-05 07/05/2018 Secondary EDYTA D [place] Insurance:CARESOURCEP CASDORPHDOB: [facility] Number: [id number] [id number] Repository Date:2018-07-05[address]ATTN: [place] [address]XE: 07/05/2018 Tertiary NOT GIVENUNK [place] Insurance:SELF PAY [facility] Number: Effective Repository Date:2018-07-05 07/05/2018 EDYTA D Primary EDYTA D [place] [id number] Insurance:MEDICARE CASDORPHDOB: [facility] PART A [facility] [id number] Number: Repository [id number]: 330 [id number] [phone] () Date:2018-07-05 07/05/2018 Secondary EDYTA D [place] Insurance:CARESOURCEP CASDORPHDOB: [facility] Number: [id number] Hospital [id number] Repository Date:2018-07-[address]ATTN: [place] [id number]: 07/05/2018 Tertiary NOT GIVENUNK Erasmo Insurance:SELF PAY [facility] Number: Effective Repository Date:2018-07-05 07/05/2018 EDYTA D Primary EDYTA D Erasmo [id number] Insurance:MEDICARE CASDORPHDOB: [facility] PART A [place] [id number] Number: Repository [id number]: [phone] [id number] () Date:2018-07-05 07/05/2018 Secondary EDYTA D [place] Insurance:CARESOURCEP CASDORPHDOB: [facility] Number: [id number] [facility] [id number] Repository Date:2018-07-05[address]ATTN: [place] [id number]: 07/05/2018 Tertiary NOT GIVENUNK [place] Insurance:SELF PAY [facility] Number: Effective Repository Date:2018-07-05 07/05/2018 EDYTA D Primary EDYTA D [place] [id number] [facility] Insurance:MEDICARE CASDORPHDOB: [facility] PART A [facility] [id number] Number: Repository [id number]: [phone] [id number] () Date:2018-07-05 07/05/2018 Secondary EDYTA D [place] Insurance:CARESOURCEP CASDORPHDOB: [facility] Number: [id number] [id number] Repository Date:2018-07-[address]ATTN: [place] [address]MH: 07/05/2018 Tertiary NOT GIVENUNK [place] Insurance:SELF PAY [facility] Number: Effective Repository Date:2018-07-05 03/21/2018 EDYTA CASDORPHDOB: Primary EDYTA CASDORPHDOB: [place] Insurance:[facility] [id number] [address] Number: [address] [address]Vrf: [phone]) [id number] [address]Owc: () Date:Plan Name:[facility] 70 () 03/21/2018 Secondary EDYTA CASDORPHDOB: [place] Insurance:[facility] [id number] [address] Number: [address]Vqt: 330 [id number] (HP) Date:Plan Name:Health 03/08/2018 EDYTA D Primary [facility] Insurance:MEDICARE CASDORPHDOB: [facility] PART BPolicy Number: [id number] Repository [facility] [id number] [address] Date:2018-02-[address] [address]~[id number] 07798Wvu: (287) SALMAel: Name:[facility] [phone] Administrators LLCPO (HP)Tel: (000) (HP) [address]Xumsxsaiy, 000-0000 (WP) [place] [address]ER: 03/08/2018 Secondary [facility] Insurance:[facility]: [facility] [id number] Repository Number: [facility] [id number] [place] Date:2018-03-08 30[address]Axz: 330 [id number] [phone] Name:Everett Shirley (HP)Tel: (000) DeptPO [address] 000-0000 (WP) [address], [place] [address]TZ: 02/23/2018 EDYTA D Primary EDYTA [facility]: Insurance:MEDICARE CASDORPHDOB: [facility] PART BPolicy Number: [id number] Repository [facility] [address] [id number] [address] Date:2018-02-[address] [address]Owb: [phone] [id number] [address]Uaj: (HP) Name:[facility] [phone] Administrators LLCPO (HP)Tel: (000) [address] [address]Gyxaxwirs, 000-0000 (WP) [place] [address]RQ: 02/23/2018 Secondary EDYTA D [facility] TIFFANYDORPHDOB: [facility] [id number] Repository Number: [facility] [id number] [address] Date:2018-02-23 [address]Ter: [phone]) [id number] [phone] Name:RACHELttn Claims (HP)Tel: (000) DeptPO Box 000-0000 (WP) [address] [place] [address]ME: 02/08/2018 EDYTA D Primary [facility] CASDORPHDOB: Insurance:MEDICARE CASDORPHDOB: [facility] PART BPolicy Number: [id number] Repository [address] [place] [address] [id number] Date:2018-01-[address] [address]Izw: [phone] [id number] [address]77[address]Eui: () Name:[facility] [id number] Administrators LLCPO (HP)Tel: (000) [address] [address]Xolvqoaoi, 000-0000 (WP) [place] [address]EL: 02/08/2018 Secondary [facility] Health Insurance:[facility]ENTERAna Rosa ALLENDORPHDOB: [facility] [id number] Repository Number: [address] [place] [address] [id number] Date:2018-01-31 [address]Abi: [phone] [id number] [phone] Name:RACHELttn Claims (HP)Tel: (000) DeptPO Box 000-0000 (WP) [address] [place] [address]CJ: 01/27/2018 EDYTA D Primary [facility] CASDORPHDOB: Insurance:MEDICARE CASDELAWARE [facility]OSPITALHDOB: [facility] PART BPolicy Number: [id number] Repository [facility] [address] [id number] [address], [place] Date:2018-01-[address] [address]Tbt: [phone] [id number] 557[address]Kfl: (HP) Name:[facility] [phone] Administrators LLCPO (HP)Tel: (000) [address] [address]Qlgbcbmyf, 000-0000 (WP) [place] [address]MG: 01/27/2018 Secondary [facility] Health Insurance:CAR[employer]OURCE CASDORPHDOB: [facility] [id number] Repository Number: [address] [place] [address] [id number] [place], [place] Date:2018-01-27 68[address]Ztf: 330 [id number] [phone] Name:Everett Shirley ()Tel: (000) DeptPO Box 000-0000 (WP) [address] [place] [address]XI: 11/02/2017 [facility] CASDORPHDOB: Insurance:SELF CASDORPHDOB: [facility] PAYPolicy Number: [id number] Repository [facility] [address] Effective [address] Date:2017-11-[address] [address]Nkh: 330 [id number] Name: [id number]: (HP) [phone] (HP) (WP) 11/02/2017 Secondary [facility] Health Insurance:MEDICARE CASDORPHDOB: [facility] BPolicy Number: [id number] Repository [id number] [facility] [address] Date:2017-11-[address] [id number] [address]Xho: (330) Name:[facility] [phone] Administrators LLCPO (HP)Tel: (000) [address] [address]Vtliefbrp, 000-0000 (WP) [place] [address]SQ: 11/02/2017 Tertiary [facility] Health [facility] CASDORPHDOB: [facility] [id number] Repository Number: [address] [place] [address] [id number] [address] Date:2017-11-02Tel: 330 [id number] [phone] Name:XAttn Claims (HP)Tel: (000) DeptPO Box 000-0000 (WP) [place], [place] [address]KV: 10/23/2017 EDYTA D Primary [facility] CASDORPHDOB: Insurance:MEDICARE CASDORPHDOB: [facility] PART APolicy Number: [id number] Repository [address] [place] [address] [id number] [address] [place] [address] Date:2017-10-23V6RCEJENGLENWOOD, [place] [address]Exc: [phone] [id number] [phone]: (HP) Name:MMail Code [phone] [address] (HP)Tel: (000) [phone], [place] 000-0000 (WP) [address]OO: 10/23/2017 Secondary [facility] Health Insurance:MEDICARE CASDORPHDOB: [facility] BPolicy Number: [id number] Repository [id number] [address] [place] [address] APT Date:2017-10-23I9ENBPEHGLENWOOD, [place] 4884-26-85Jyfw [address]Ito: (330) Name:[facility] [phone] Administrators LLCPO (HP)Tel: (000) [address] 825[address]Kuasaqccm, 000-0000 (WP) [place] [address]IY: 10/23/2017 Tertiary [facility] Health Insurance:[facility] CASDORPHDOB: [facility] MCPolic [id number] Repository Number: [address] [place] [address] [id number] [address] Date:2017-10-23Tel: [phone] [id number] [phone] Name:XAttn Claims (HP)Tel: (000) DeptPO [address] 000-0000 (WP) [address], [place] [address]HN: 10/18/2017 Edyta D Primary Edyta D Erasmo [id number] Insurance:MEDICARE CasdorphDOB: [facility] A BPolicy [id number] Number: Repository [address]Bpz: [phone] [id number] () Date:2017-10-18 10/18/2017 Secondary Edyta D [place] Insurance:CARESOURCEP CasdorphDOB: [facility] Number: [id number] [id number] Repository Date:2017-10-[address]ATTN: [place] [address]WY: 10/18/2017 Tertiary NOT GIVENUNK Erasmo Insurance:SELF PAY [facility] Number: Effective Repository Date:2017-10-18 10/14/2017 EDYTA D Primary EDYTA D [facility] CASDORPHDOB: Insurance:MEDICARE CASDORPHDOB: [facility] PART BPolicy Number: [id number] Repository [address] [facility] [id number] [address] Date:2017-10-[address] [address]Fuj: ([phone] [id number] 301[address]Gdt: () Name:[facility] Administrators LLCPO ()Tel: (000) [address] [address]643Njfvmcdgo, 000-0000 (WP) [place] [address]IY: 10/14/2017 Secondary [facility]TA D [facility] Insurance:[facility]OURCE CASDORPHDOB: [facility] [id number] Repository Number: [facility] [id number] [address] Date:2017-10-14 [address]Wie: [phone] [id number] Name:Everett Claims ()Tel: (000) DeptPO [address] 000-0000 (WP) 87[place], [place] [address]FD: 09/09/2017 EDYTA D [facility] CASDORPHDOB: Insurance:MEDICARE CASDORPHDOB: [facility] PART BPolicy Number: [id number] Repository [address] [place] [address] [id number] [address] [place] [address] Date:2016-12-[address] [address]Xae: (330) [id number] 437[address]Ksg: (HP) Name:[facility] Rowena Administrators LLCPO (HP)Tel: (000) [address] [address]Majulhesc, 000-0000 (WP) [place] [address]JF: 09/09/2017 Secondary [facility] Health Insurance[facility]: [facility] [id number] Repository Number: [address] [place] [address] [id number] [place], [place] Date:2017-08-1072078Fie: (330 [id number] [phone] Name:Everett Shirley ()Tel: (000) DeptPO Box 000-0000 (WP) [address] [place] [address]SG: 08/12/2017 EDYTA Man[facility] CASDORPHDOB: Insurance:MEDICARE [facility] LOUISDOHDOB: [facility] PART BPolicy Number: [id number] Repository [address] [place] [address] [id number], [place] Date:2017-07-[address] [address]Jhc: ([phone]) [id number] [address]Xch: (HP) Name:[facility] [id number] Administrators LLCPO (HP)Tel: (000) [address] 50400Whhoarlsy, 000-0000 (WP) [place] [address]KW: 08/12/2017 Secondary EDYTA [facility] Health Insurance:[facility] SYSTEMDORPHDOB: [facility] [id number] Repository Number: [address] [place] [address] [id number] [place], [place] Date:2017-07-15 [address]Evl: 330 [id number] [phone] Name:XAttn Claims (HP)Tel: (000) DeptPO Box 000-0000 (WP) [address] [place] [address]VL: 07/21/2017 EDYTA D Primary [facility] CASDORPHDOB: Insurance:MEDICARE CASDORPHDOB: [facility] BPolicy Number: [id number] Repository [facility] [address] [id number] [facility] [address] Date:2017-07-[address] [address]Iba: 330 [id number] [address]Ezr: (HP) Name:[facility] [phone] Administrators LLCPO (HP)Tel: (000) [address] [address]44Gevjnfgpk, 000-0000 (WP) [place] [address]DN: 07/21/2017 Secondary [facility] Insurance:[facility]ENTERDORPHDOB: [facility] MCPolicy [id number] Repository Number: [facility] [address] [id number] [address] Date:2017-07-15 [address]Dxh: ([phone]) [id number] [phone] Name:XAttn Claims (HP)Tel: (000) DeptPO Box 000-0000 (WP) [address] [place] [address]VP:
== END 2018-07-07 14:00 | disposition home or self-care (01) | DRG 93 ==
LOC: MS3 07-06 15:31 → ICU 07-06 22:32
PROVIDERS: Referring Provider Hospitalist
DX: G89.29 Other chronic pain (principal); M54.9 Dorsalgia, unspecified; E03.9 Hypothyroidism, unspecified; E11.9 Type 2 diabetes mellitus without complications; R21 Rash and other nonspecific skin eruption; Z79.84 Long term (current) use of oral hypoglycemic drugs; T40.2X1A Poisoning by other opioids, accidental (unintentional), initial encounter; Y92.230 Patient room in hospital as the place of occurrence of the external cause; R41.82 Altered mental status, unspecified; G43.909 Migraine, unspecified, not intractable, without status migrainosus
CPT/HCPCS: 36415; 80048; 82962; 85025; 94640; 94770; 97802; J7030; A4216; J2310; J2405; J3490

== ENCOUNTER → 2020-08-27 11:50 | Outpatient (CLI) | payer MEDICARE, MEDICAID, SELFPAY ==
[2018-07-05 16:26] VITALS: BMI 42.2
[2020-08-27 12:54] LABS: Amphetamine Urine VISTA NEGATIVE (<1000 ng/mL); Barbiturate Urine VISTA NEGATIVE (< 200 ng/mL); Benzodiazepine Urine VISTA NEGATIVE (< 200 ng/mL); Cocaine Urine VISTA NEGATIVE (< 300 ng/mL); Ecstacy Urine VISTA POSITIVE (< 500 ng/mL); Methadone Urine VISTA NEGATIVE (< 300 ng/mL); PCP Urine VISTA NEGATIVE (< 25 ng/mL); THC Urine VISTA NEGATIVE (< 50 ng/mL); Vista UDS pH Range 5
== END ==
PROVIDERS: Referring Provider Anesthesiology Pain Medicine; Visit Provider Anesthesiology Pain Medicine
DX: F11.20 Opioid dependence, uncomplicated (principal)
CPT/HCPCS: 80307

== ENCOUNTER → 2021-03-11 11:37 | Outpatient (CLI) | payer MEDICARE, MEDICAID, SELFPAY ==
[2021-03-11 13:12] LABS: Amphetamine Urine VISTA NEGATIVE (<1000 ng/mL); Barbiturate Urine VISTA NEGATIVE (< 200 ng/mL); Benzodiazepine Urine VISTA NEGATIVE (< 200 ng/mL); Cocaine Urine VISTA NEGATIVE (< 300 ng/mL); Ecstacy Urine VISTA NEGATIVE (< 500 ng/mL); Methadone Urine VISTA NEGATIVE (< 300 ng/mL); PCP Urine VISTA NEGATIVE (< 25 ng/mL); THC Urine VISTA POSITIVE (< 50 ng/mL); Vista UDS pH Range 6
== END ==
PROVIDERS: Referring Provider Anesthesiology Pain Medicine; Visit Provider Anesthesiology Pain Medicine
DX: F11.20 Opioid dependence, uncomplicated (principal)
CPT/HCPCS: 80307